=== PATIENT | female | born 1935 | race Caucasian/White ===

== ENCOUNTER 2017-11-17 13:04 | Outpatient (CLI) | payer MEDICARE, BC | END 2017-11-17 13:05 | disposition home or self-care (01) | LOC: BICULT 13:04 | PROVIDERS: ATTEND Family Medicine | DX: R60.0 Localized edema (principal); R06.09 Other forms of dyspnea; Z86.718 Personal history of other venous thrombosis and embolism ==

== ENCOUNTER 2019-09-26 14:45 | Outpatient (CLI) | payer MEDICARE, BC ==
--- NOTE | 2019-09-26 16:05 | CT ---
CT BRAIN WITH AND WITHOUT CONTRAST: DATE: 09/26/2019 HISTORY: 84 female with right temporal mass Dr. Sage discussed the findings by telephone with Dr. Greenwood at 3:54 PM on 09/26/2019. COMPARISON: none* TECHNIQUE: Precontrast scan of the brain. IV injection of iodinated contrast media. Postcontrast scan of brain. FINDINGS: There is a large neoplastic tumor mass measuring approximately 3 x 3.8 cm destroying bone, causing a large osseous defect involving the posterior aspect of the squamosal portion of the right temporal bone and adjacent anterior portion of the right mastoid bone. There is a right mastoid effusion. The tumor has heterogeneous enhancement. There is an extracranial component of the tumor. There is an intracranial right middle cranial fossa component of the tumor that has processes that deeply indent and possibly invade the lateral aspect of the anterior portion of the right temporal lobe. There is a disproportionately large area of vasogenic edema involving much of the right temporal lobe, not onl y anteriorly, but extending superiorly and posteriorly from this region of invasion. There is minimal compression of the right lateral ventricle. No obstructive hydrocephalus. Slight shift of the septum pellucidum approximately 0.4 cm to the left of midline. No acute intracranial hemorrhage. No other enhancing intra-axial lesions. IMPRESSION: 1. Large, bone destroying, right temporal, malignant neoplastic tumor mass, with both extracranial co mponent, and intracranial component invading the right middle cranial fossa and involving the right temporal lobe. Large region of vasogenic edema throughout the right temporal lobe. 2. This could either represent a metastatic lesion or primary tumor arising from the temporal bone. M etastatic lesion is favored.
== END 2019-09-26 14:46 | disposition home or self-care (01) ==
LOC: BICCT 14:45
PROVIDERS: ATTEND Specialist
DX: R22.0 Localized swelling, mass and lump, head (principal); G93.6 Cerebral edema
CPT/HCPCS: 70470; 82565

== ENCOUNTER 2019-10-23 10:12 | Outpatient (CLI) | payer MEDICARE, BC ==
--- NOTE | 2019-10-23 12:10 | MRI ---
MRI BRAIN WITH AND WITHOUT CONTRAST: Date: 10/23/2019 INDICATION: Right temporal tumor with skull invasion. Comparison made to recent CT head dated 09/26/2019. That exam confirmed a mass involving the right mi ddle cranial fossa with intra and extracranial involvement and bone destruction. FINDINGS: MRI shows diffuse heterogeneous enhancement involving this right temporal bone mass. It has a nodular configuration along its intracranial side. On axial images, it measures approximately 4.0 cm AP dime nsion, and approximately 3.1 cm width in the axial plane. There is nodular involvement of the right t emporal lobe along the borders of this mass. There is surrounding vasogenic edema within the right te mporal lobe, confirmed with FLAIR sequence/ There is associated dural enhancement involving the right cerebral hemisphere, most prominent along the right temporal and frontal lobes. No other enhancing mass identified. T2 images show diffuse mucosal edema involving the right mastoid air cells. IMPRESSION: 1. Enhancing mass involving the right temporal bone with intra and extracranial extension. Nodular i nvolvement of the right temporal lobe along the medial borders of this mass with associated dural enh ancement. Measurements given above. 2. Diffuse mucosal edema involving the right mastoid air cells. POS: [facility]
[2019-10-23] MEDS ORDERED: Magnevist 469MG/ML 20 ML VIAL ONE (15:58)
== END 2019-10-23 10:13 | disposition home or self-care (01) ==
LOC: MRI 10:12
PROVIDERS: ATTEND Surgery
DX: D49.2 Neoplasm of unspecified behavior of bone, soft tissue, and skin (principal); Q75.9 Congenital malformation of skull and face bones, unspecified
CPT/HCPCS: 70553; 82565; A9579

== ENCOUNTER 2019-10-25 05:40 | Inpatient (IN) | payer MEDICARE, BC ==
[2019-10-25] MEDS ORDERED: Sodium Chloride 0.9% 10 ML ONE (06:32)
[2019-10-25] MEDS ORDERED: Bacitracin Zinc Ointment 30 gm TUBE ONE (06:32)
[2019-10-25] MEDS ORDERED: Lidocaine 1% w/Epinephrine 1:100K 20 ML VIAL ONE (06:32)
[2019-10-25] MEDS ORDERED: Thrombin 5000 UNITS/5 ML VIAL ONE (06:32)
[2019-10-25 06:34] LABS: Hemoglobin 14.9 g/dL (12.0-16.0); Mean Corpuscular HGB CONC 33.2 g/dL (32.0-36.0); Mean Corpuscular Hemoglobin 31.7 pg (27.0-31.0); Mean Corpuscular Volume 95.5 fL (78.0-98.0); Mean Platelet Volume 8.3 fL (7.4-10.4); Platelet Count 234 thou/uL (130-400); Red Blood Cell (RBC) Count 4.71 mill/uL (4.20-5.40); White Blood Cell (WBC) Count 6.5 thou/uL (4.8-10.8)
[2019-10-25] MEDS ORDERED: Albumin 5% 500 ML ONE (06:35)
[2019-10-25] MEDS ORDERED: levETIRAcetam 1000 MG/100 ML PREMIX BAG ONE ×2 (06:35→08:23)
[2019-10-25] MEDS ORDERED: levETIRAcetam 500 MG/100 ML PREMIX BAG ONE (06:35)
[2019-10-25 06:41] LABS: Prothrombin Time 13.4 SEC (12.0-14.7)
[2019-10-25 06:42] LABS: PTT 28.7 SEC (22.9-36.1)
[2019-10-25 06:52] LABS: Anion Gap 14 mmol/L (10-20); BUN (Urea Nitrogen) 11 mg/dL (9.8-20.1); Calc. Creatinine Clearance 52 mL/min (70-130); Calcium 9.4 mg/dL (7.8-10.44); Carbon Dioxide 27 mmol/L (23-31); Chloride 106 mmol/L (98-107); Estimated GFR-MDRD 55; Glucose 90 mg/dL (83-110); Potassium 4.2 mmol/L (3.5-5.1); Sodium 143 mmol/L (136-145)
[2019-10-25] MEDS ORDERED: Fentanyl 100 MCG/2 ML VIAL ONE ×2 (07:03→07:58)
[2019-10-25] MEDS ORDERED: Phenylephrine HCL 10 MG/ML VIAL ONE (08:30)
[2019-10-25] MEDS ORDERED: Rocuronium Bromide 10 MG/ML (10ML VIAL) ONE (10:05)
[2019-10-25] MEDS ORDERED: PHENYLEPHRINE-NS 100 MCG/ML 10 ML SYRINGE ONE (10:05)
[2019-10-25] MEDS ORDERED: PROPOFOL 200 MG/20 ML VIAL ONE (10:05)
[2019-10-25] MEDS ORDERED: Lidocaine 1% PF 5 ML VIAL ONE ×2 (10:05)
[2019-10-25] MEDS ORDERED: Esmolol 100 MG/10 ML VIAL ONE (10:05)
[2019-10-25] MEDS ORDERED: Dexamethasone 20 MG/5 ML VIAL ONE (10:05)
[2019-10-25] MEDS ORDERED: Ondansetron PF 4 MG/2 ML Vial ONE (10:05)
[2019-10-25] MEDS ORDERED: SUGAMMADEX SODIUM 200 MG/2 ML VIAL ONE (10:10)
[2019-10-25] MEDS ORDERED: Acetaminophen 325 MG TAB PO PRN (10:57)
[2019-10-25] MEDS ORDERED: Mag-Al 1200 mg/1200 mg/30 ML UDCUP PO PRN (10:57)
[2019-10-25] MEDS ORDERED: Ondansetron PF 4 MG/2 ML Vial IVP PRN (10:57)
[2019-10-25] MEDS ORDERED: hydrALAZINE 20 MG/ML VIAL SLOW IVP PRN (10:57)
[2019-10-25] MEDS ORDERED: Morphine 2 MG/ML SYRINGE SLOW IVP PRN (10:57)
[2019-10-25] MEDS ORDERED: Promethazine HCl 25 MG/ML VIAL SLOW IVP PRN (11:10)
[2019-10-25] MEDS ORDERED: Ondansetron HCl/PF 4 MG/2 ML Vial IVP PRN (11:10)
[2019-10-25] MEDS ORDERED: Communication Order-Pharmacy FS PRN (11:10)
[2019-10-25] MEDS ORDERED: Promethazine HCl 25 MG/ML VIAL IM PRN (11:10)
[2019-10-25] MEDS ORDERED: traMADol HCl 50 MG TAB PO PRN (11:10)
[2019-10-25] MEDS ORDERED: Pantoprazole 40 MG VIAL IVP SCH (11:15)
[2019-10-25 13:41] VITALS: BMI 29.6
[2019-10-25] MEDS: CEFAZOLIN 2 GM in Premix Bag 1 BAG IVPB SCH ×2 (13:53→21:28)
[2019-10-25] MEDS: HYDROcodone/Acetaminophen 7.5/325 mg Tablet PO PRN ×2 (14:10→21:33)
[2019-10-25] MEDS: Sodium Chloride 0.9% 1,000 ML IV SCH ×2 (14:12→21:48)
[2019-10-25] MEDS: Dexamethasone 4 MG in Sodium Chloride 0.9% 50 ML IVPB SCH ×2 (17:43→23:31)
[2019-10-25] MEDS: Docusate 100 MG CAP PO PRN (21:28)
[2019-10-25] MEDS: Rosuvastatin 20 MG TAB PO SCH (21:28)
[2019-10-25] MEDS: Latanoprost 0.005% Ophth Soln 2.5 ml Bottle EA EYE SCH (21:31)
[2019-10-26 03:57] LABS: #Lymphocytes 0.9 thou/uL (1.20-3.40); #Monocytes 0.3 thou/uL (0.11-0.59); #Neutrophils 10.3 thou/uL (1.40-6.50); %Eosinophils 0.1 % (0.0-10.0); %Lymphocytes 8.1 % (21.0-51.0); %Monocytes 2.7 % (0.0-10.0); %Neutrophils 89.1 % (42.0-75.0); Hemoglobin 12.8 g/dL (12.0-16.0); Mean Corpuscular HGB CONC 33.3 g/dL (32.0-36.0); Mean Corpuscular Hemoglobin 32.2 pg (27.0-31.0); Mean Corpuscular Volume 96.7 fL (78.0-98.0); Mean Platelet Volume 8.7 fL (7.4-10.4); Platelet Count 200 thou/uL (130-400); Red Blood Cell (RBC) Count 3.98 mill/uL (4.20-5.40); White Blood Cell (WBC) Count 11.6 thou/uL (4.8-10.8)
[2019-10-26 04:13] LABS: Anion Gap 10 mmol/L (10-20); BUN (Urea Nitrogen) 10 mg/dL (9.8-20.1); Calc. Creatinine Clearance 63 mL/min (70-130); Calcium 8.2 mg/dL (7.8-10.44); Carbon Dioxide 25 mmol/L (23-31); Chloride 111 mmol/L (98-107); Estimated GFR-MDRD 66; Glucose 142 mg/dL (83-110); Potassium 4.5 mmol/L (3.5-5.1); Sodium 141 mmol/L (136-145)
[2019-10-26] MEDS: HYDROcodone/Acetaminophen 7.5/325 mg Tablet PO PRN ×2 (05:33→16:19)
[2019-10-26] MEDS: CEFAZOLIN 2 GM in Premix Bag 1 BAG IVPB SCH ×3 (05:34→20:13)
[2019-10-26] MEDS: Dexamethasone 4 MG in Sodium Chloride 0.9% 50 ML IVPB SCH ×4 (05:34→23:02)
[2019-10-26] MEDS: Levothyroxine Sodium 112 MCG TAB PO SCH (05:35)
--- NOTE | 2019-10-26 07:47 | CT ---
CT BRAIN WITHOUT CONTRAST: COMPARISON: None. HISTORY: Right-sided temporal mass resection. COMPARISON: MRI brain 10/23/2019. TECHNIQUE: Multiple contiguous axial images were obtained in a CT of the brain without contrast. FINDINGS: Postsurgical changes are seen in the right middle cranial fossa and temporal bone. Air is seen in th is location. There is encephalomalacia in the right temporal lobe from prior surgery. Calcification s are seen in the basal ganglia. A small amount of pneumocephalus is also seen anteriorly. There is a small amount of hyperdensity within the surgical bed which could represent a small amount of hemor rhage. No intraventricular hemorrhage is seen. No midline shift or downward herniation is seen. The paranasal sinuses and left masseter cells are well aerated. IMPRESSION: Expected postsurgical changes in the right temporal lobe without evidence of midline shift of downwar d herniation. POS: [facility]
[2019-10-26] MEDS: Pantoprazole 40 MG VIAL IVP SCH (08:56)
[2019-10-26] MEDS ORDERED: Enoxaparin Sodium 40 MG/0.4 ML SYRINGE SC SCH (10:45)
[2019-10-26] MEDS ORDERED: Iopamidol-370 76% 500 ML 1 ML ONE (11:05)
--- NOTE | 2019-10-26 11:25 | ULT ---
EXAM: Bilateral lower extremity venous duplex: Deep veins evaluated with color Doppler, spectral analysis, and compression. INDICATIONS: Bilateral lower extremity pain and edema. Prior left lower extremity DVT. FINDINGS: Deep veins interrogated include common femoral vein, femoral vein, popliteal vein, and post erior tibial vein. These veins show normal compression and blood flow. No evidence of DVT. IMPRESSION: Negative Bilateral venous duplex exam.
--- NOTE | 2019-10-26 12:02 | PRG ---
DATE OF SERVICE: Ms. Malhotra's CT is acceptable. We will start her on Lovenox prophylactically given her history of DVT postoperatively. Transfer to the floor. We will get a CT scan of chest, abdomen, pelvis. She is neurologically intact. Job ID: [id number]
[2019-10-26] MEDS: Sodium Chloride 0.9% 1,000 ML IV SCH ×2 (12:58→23:11)
--- NOTE | 2019-10-26 16:14 | CON ---
DATE OF CONSULTATION: REASON FOR CONSULTATION: Perioperative medical management. HISTORY OF PRESENT ILLNESS: This patient is an 84-year-old female, who is status post elective surgery for removal of a mass in the right temporal area involving cranium in the temporal lobe. The patient reported she initially started having some hearing issues with the right ear. She developed some soreness above the ear and then had a mass developed. She saw Dr. Mancuso, who then referred her to Dr. Ledesma and she has undergone that surgical procedure today. There was a piece of tissue taken from her thigh to reconstruct the surgical defect. The patient currently is doing remarkably well. She has some discomfort in that area. She has been tolerating clears and would like some more substantial food, but unsure she would be able to chew it at this time. Did speak with Dr. Ledesma regarding the patient, the differential in this tumor is still open, could potentially be sarcoma versus a metastatic lesion versus a meningeal source. Path is still pending. REVIEW OF SYSTEMS: The patient reports that she has had some lower extremity edema for a while, but that seems to have resolved of late, otherwise all systems reviewed. All pertinent positives and negatives noted in the history of present illness. PAST MEDICAL HISTORY: Notable for hypothyroidism, hyperlipidemia, history of reflux. 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 and reports that is not very often. 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 Lopez several years ago. She also has a history of hypertension, however, she developed angioedema related to ELINOR inhibitor. This was discontinued and she was never started on any additional blood pressure medications and her blood pressure has been stable. The patient had a DVT in her left leg, apparently following her initial hip replacements that was treated and resolved prior to her second hip replacement. PAST SURGICAL HISTORY: Hysterectomy in the , hip replacement x2, cataractectomy and lumbar stenosis decompression. FAMILY HISTORY: Multiple members of her mother's family have had cancer including her mother. Her father of an accident young and all of his family members lived well into their 80s. SOCIAL HISTORY: Nonsmoker, nondrinker, nondrug user. She is since 1989. She is fully independent and functional. She has two sons that still live relatively in this region and two daughters who live out of state. She appears to be a full code. ALLERGIES: ELINOR INHIBITOR SECONDARY TO ANGIOEDEMA. CURRENT MEDICATIONS: 1. Benadryl 25 mg t.i.d. p.r.n. 2. Vitamin B complex one daily. 3. Aloe Vera 25 mg daily. 4. Magnesium 250 mg daily. 5. Sertraline 50 mg daily. 6. Vitamin D3, 5000 units daily. 7. Levothyroxine 112 mcg daily. 8. Aspirin 325 at bedtime. 9. Tramadol 1 p.o. b.i.d. 10. Xalatan eyedrops 0.005% one drop each eye at bedtime. 11. Crestor 20 mg at bedtime. PHYSICAL EXAMINATION: VITAL SIGNS: Temperature is 98.9, pulse 70, respirations 15-19, BP 113/60, O2 saturations 98% on room air. GENERAL APPEARANCE: Age-appropriate female, who actually may appear slightly younger than her stated age. She is awake and alert, very pleasant, cooperative. She has a postsurgical bandaging over her head. HEENT: PERRL. No OP lesions. NECK: Supple and symmetric. HEART: Regular rate and rhythm without murmurs, gallops, or rubs. LUNGS: Clear to auscultation bilaterally with good chest wall expansion and air exchange. ABDOMEN: Soft, nontender, and nondistended. Positive bowel sounds. No masses. No organomegaly. EXTREMITIES: No cyanosis, clubbing, or edema. NEURO: She appears to be cognitively intact, moving all extremities spontaneously with no focal deficits. PSYCH: Normal affect and behavior. LABORATORY DATA: White count 11.6, hemoglobin 12.8, platelets 200. Sodium 141, potassium 4.5, chloride 111, CO2 is 25, BUN 10, creatinine 0.82, glucose 142. CT brain shows expected postsurgical changes in the right temporal lobe without evidence of midline shift or downward herniation. IMPRESSION AND PLAN: 1. Postop right temporal lobe mass lesion status post excision. Etiology of that is still unknown. She is doing remarkably well postoperatively. Discussed with the neurosurgical team. The patient will be transferred to the surgical floor with concerns for the possibility of metastatic disease. We will obtain CT chest, abdomen, and pelvis today. 2. History of hypertension although not been an issue of late. Blood pressure is actually quite good here. She is on no medicines at home and do not anticipate needing any at this time. 3. History of reflux. We will continue with PPI, although the patient has not been on one at home and not had much in the way of symptoms. She certainly needs it for postop stress ulcer prophylaxis. 4. History of postoperative deep vein thrombosis. The patient has contraindication to anticoagulation presently. Continue SCDs and we will try to get back on anticoagulation once it is reasonable from a postop standpoint. 5. Hyperlipidemia. Continue with rosuvastatin. 6. Postoperative seizure prophylaxis with Keppra. 7. Hypothyroidism. Continue with her levothyroxine supplementation. Job ID: [id number]
--- NOTE | 2019-10-26 16:29 | CT ---
CT CHEST, ABDOMEN AND PELVIS WITH IV CONTRAST: 10/26/19 HISTORY: Right temporal brain mass. Evaluate for metastatic disease. COMPARISON: CT abdomen and pelvis 05/06/12. CT THORAX: Vascular calcifications are seen in the thoracic aorta. The heart is mildly enlarged. There is no ev idence of lymphadenopathy. A moderate sized hiatal hernia is present with the fundus and proximal body of the stomach above the level of the hemidiaphragms. There is likely some degree of rotation of the stomach due to the hiatal hernia. There are small bilateral pleural effusions and associated bibasilar areas of parenchymal density lik sudhakar attributable to passive atelectasis. A calcified granuloma is seen in the right upper lobe. A noncalcified pulmonary nodule is not identi fied. OSSEOUS STRUCTURES: Degenerative changes are seen in the spine, but no suspicious lytic or sclerotic osseous lesion is id entified. CT ABDOMEN AND PELVIS: There is a 1.8 cm fluid attenuation hypodense lesion in the lateral segment left hepatic lobe measuri ng 19 mm with previous measurement of 18 mm on the study in 2011 and this is likely compatible with a cyst. However, there is a small 1.2 cm hypodense lesion within the dome of the liver which cannot be characterized as a cyst. There are much more subtle hypodense lesions seen scattered within the righ t hepatic lobe with at least three additional subtle hypodense lesions identified, largest in the pos terior segment right hepatic lobe measuring 22 mm and a smaller hypodense lesion seen near the more m edial aspect right hepatic lobe measuring 1.7 cm with an additional smaller lesion also present in th e posterior segment right hepatic lobe, and these lesions are suspicious for metastatic lesions. A small gallbladder calculus is seen. The spleen, pancreas, bilateral adrenal glands, and kidneys demonstrate a normal CT appearance. French catheter is present in the urinary bladder. There is gas in the urinary bladder which may be re lated to the recent catheterization. There are bilateral total hip prostheses which obscure the pelvi c structures. There is colonic diverticulosis. Loops of small bowel are normal in caliber. No enlarged lymph nodes are seen by CT size criteria. 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 No free fluid, fluid collection, or lymphadenopathy is seen in the abdomen or pelvis. Multilevel degenerative changes are seen in the spine. There is grade I anterolisthesis of L3 on L4 l ikely related to prominent facet degenerative changes at this level. IMPRESSION: 1. Hypodense lesions scattered in the right and left hepatic lobes worrisome for metastatic dise ase. 2. Left hepatic lobe cyst. 3. Small bilateral pleural effusions and associated atelectasis. 4. Moderate sized hiatal hernia with at least a degree of rotation of the stomach. The fundus an d proximal body of the stomach above the hemidiaphragm is difficult to assess secondary to the mild r otation and incomplete distention. 5. Colonic diverticulosis. 6. Duplicated IVC. POS: [facility]
[2019-10-26] MEDS ORDERED: Milk Of Magnesia 30 ML UDCUP PO PRN (18:38)
[2019-10-26] MEDS: Rosuvastatin 20 MG TAB PO SCH (20:13)
[2019-10-26] MEDS: Latanoprost 0.005% Ophth Soln 2.5 ml Bottle EA EYE SCH (20:13)
[2019-10-27] MEDS: HYDROcodone/Acetaminophen 7.5/325 mg Tablet PO PRN ×3 (02:58→22:18)
[2019-10-27] MEDS: Docusate 100 MG CAP PO PRN (04:07)
[2019-10-27] MEDS: Levothyroxine Sodium 112 MCG TAB PO SCH (05:03)
[2019-10-27] MEDS: Dexamethasone 4 MG in Sodium Chloride 0.9% 50 ML IVPB SCH ×3 (05:03→19:05)
[2019-10-27] MEDS: CEFAZOLIN 2 GM in Premix Bag 1 BAG IVPB SCH ×3 (05:03→21:17)
[2019-10-27] MEDS: Enoxaparin Sodium 40 MG/0.4 ML SYRINGE SC SCH (08:22)
[2019-10-27] MEDS: Pantoprazole 40 MG VIAL IVP SCH (08:22)
--- NOTE | 2019-10-27 12:23 | PRG ---
DATE OF SERVICE: 10/27/2019 This is Jose Francisco Casillas PA-C dictating a report for Devon Ledesma MD. Postoperative recheck. Ms. Malhotra is postoperative day number two having undergone right craniotomy and cranioplasty for tumor resection. Her pathology is still pending. The patient states she had a rough night. She had some pretty significant right-sided headache. She has had no drainage from her ear, though feels that it is extremely full and she has noticed some itching. Again, there has been no drainage. She has no postural headache. She states that she has significant back pain and arthritis and this is most bothersome to her. She was sitting up in a chair yesterday and states this helps to improve her back pain. She has had no nausea or vomiting, is tolerating a solid diet. She is concerned about bowel movements. She has a history of small-bowel obstruction and she is on appropriate bowel regimen and I have discussed with the nurses. I also noticed that she did have some issue with her IV and we will allow her to transition to oral medications as tolerated. Finally, we did obtain a CT scan of the chest, abdomen, and pelvis that showed some concern for metastatic disease in her liver. We will ask that Oncology see the patient and she likely will need an outpatient PET scan, but we will defer to them in this regard. PHYSICAL EXAMINATION: The patient is awake, alert, appropriate, and she really does look as though she is recovering well. She does not appear to have significant swelling into the right side of her face. She follows commands in all 4 extremities and has very clear and coherent speech. Please call with any changes in patient's neurologic status or she may work with therapies and we will continue with inpatient rehab screen as ordered. The patient is doing very well postoperatively and we are pleased with her outcome. We will continue to monitor her for possible CSF leak, especially coming from the ear. Job ID: [id number]
[2019-10-27] MEDS: Sodium Chloride 0.9% 1,000 ML IV SCH (13:17)
--- NOTE | 2019-10-27 14:52 | PDOC.HOSPP ---
- Subjective Subjective: pt ambulating inside the room, family members visiting her, rough night, did not sleep much but she is quite cheerful and pleasant. Ct finding d/w her. denies any headache or earpain - Objective Vital Signs & Weight: Vital Signs (12 hours) Temp Pulse Resp BP Pulse Ox 10/27/19 11:18 98.0 F 74 16 135/70 100 10/27/19 08:20 98 10/27/19 07:17 97.9 F 63 16 119/70 98 10/27/19 03:52 98.7 F 63 16 124/68 94 L Weight Weight 172 lb 9.951 oz Most Recent Monitor Data Heart Rate from ECG 68 NIBP 98/83 NIBP BP-Mean 88 Respiration from ECG 20 SpO2 98 I&O: 10/26/19 10/27/19 10/28/19 06:59 06:59 06:59 Intake Total 2252 525 450 Output Total 1815 2445 Balance 437 -1920 450 Result Diagrams: 10/26/19 03:41 10/26/19 03:41 Hospitalist ROS - Medication Medications: Active Medications Generic Name Dose Route Start Last Admin Trade Name Freq PRN Reason Stop Dose Admin Hydrocodone Bitart/Acetaminophen 1 tab 10/25/19 10:57 10/27/19 12:10 Edison 7.5/325 PO 1 tab Q4H PRN Administration Moderate Pain (4-6) Cholecalciferol 5,000 units 10/26/19 09:00 10/27/19 08:23 Vitamin D3 PO 5,000 units DAILY SARAH Administration Docusate Sodium 100 mg 10/25/19 10:57 10/27/19 04:07 Colace PO 100 mg BIDPRN PRN Administration Constipation Enoxaparin Sodium 40 mg 10/27/19 09:00 10/27/19 08:22 Lovenox SC 40 mg 0900 SARAH Administration Cefazolin Sodium/Dextrose 2 gm 50 mls @ 100 mls/hr 10/25/19 14:00 10/27/19 13 :32 / Device IVPB 50 mls Q8HR SARAH Administration Dexamethasone 4 mg/ Sodium 50.4 mls @ 100 mls/hr 10/25/19 18:00 10/27/19 12: 10 Chloride IVPB 10/27/19 18:01 50.4 mls Q6HR SARAH Administration Levetiracetam 500 mg/ Device 100 mls @ 200 mls/hr 10/25/19 21:00 10/27/19 08: 22 IVPB 100 mls BID SARAH Administration Sodium Chloride 1,000 mls @ 75 mls/hr 10/25/19 11:00 10/27/19 13:17 Normal Saline 0.9% IV Not Given .[id number] SARAH Latanoprost 1 drop 10/25/19 21:00 10/26/19 20:13 Xalatan 0.005% Ophth Soln EA EYE 1 drop HS SARAH Administration Levothyroxine Sodium 112 mcg 10/26/19 06:00 10/27/19 05:03 Synthroid PO 112 mcg 0600 SARAH Administration Magnesium Hydroxide 30 ml 10/26/19 18:38 10/27/19 12:10 Milk Of Magnesium PO 11/02/19 18:39 30 ml ONE PRN Administration Constipation Morphine Sulfate 2 mg 10/25/19 10:57 10/25/19 23:30 Morphine SLOW IVP 2 mg Q1H PRN Administration Severe Pain (7-10) Pantoprazole Sodium 40 mg 10/26/19 09:00 10/27/19 08:22 Protonix IVP 40 mg DAILY SARAH Administration Rosuvastatin Calcium 20 mg 10/25/19 21:00 10/26/19 20:13 Crestor PO 20 mg HS SARAH Administration Sertraline HCl 50 mg 10/26/19 09:00 10/27/19 08:23 Zoloft PO 50 mg DAILY SARAH Administration Sodium Chloride 10 ml 10/25/19 10:57 10/26/19 08:57 Flush - Normal Saline IVF 10 ml PRN PRN Administration Saline Flush - Exam General Appearance: NAD, awake alert, ill appearing Eye: PERRL ENT - other findings: no ear discharge Neck: supple Heart: RRR Respiratory: CTAB, no wheezes Gastrointestinal: soft, normal bowel sounds Extremities: no clubbing, no edema Neurological: cranial nerve grossly intact, no focal deficits, no new deficit Hosp A/P - Plan old records reviewed/req Right temporal lobe mass s/p R.craniotomy and cranioplasty poss.metastatic ca with mets to liver -primary unknown yet -NS making contact w.. oncologist and plan for OP PET -pt had cscope closer to 10 yrs ago, neg.. for ca at that time. -avoid tramadol as risk for seizure or it would reduce the threshold for seizure. -tylenol PRN. HTN -controlled Hypothyroidism -on supplement -fw on TSH
[2019-10-27] MEDS: Dexamethasone 3 MG in Sodium Chloride 0.9% 50 ML IVPB SCH ×2 (19:04→23:03)
[2019-10-27] MEDS: Rosuvastatin 20 MG TAB PO SCH (20:21)
[2019-10-27] MEDS: Latanoprost 0.005% Ophth Soln 2.5 ml Bottle EA EYE SCH (20:21)
[2019-10-27] MEDS: levETIRAcetam 500 MG TAB PO SCH (20:21)
[2019-10-27] MEDS: diphenhydrAMINE 25 MG CAP PO PRN (22:20)
[2019-10-28] MEDS: Dexamethasone 3 MG in Sodium Chloride 0.9% 50 ML IVPB SCH ×4 (05:03→23:56)
[2019-10-28 05:26] LABS: #Lymphocytes 0.8 thou/uL (1.20-3.40); #Monocytes 0.4 thou/uL (0.11-0.59); #Neutrophils 7.1 thou/uL (1.40-6.50); %Eosinophils 0.2 % (0.0-10.0); %Lymphocytes 9.7 % (21.0-51.0); %Monocytes 5.2 % (0.0-10.0); Mean Corpuscular HGB CONC 31.9 g/dL (32.0-36.0); Mean Corpuscular Volume 97.2 fL (78.0-98.0); Mean Platelet Volume 9.6 fL (7.4-10.4); Platelet Count 189 thou/uL (130-400); Red Blood Cell (RBC) Count 3.85 mill/uL (4.20-5.40); White Blood Cell (WBC) Count 8.3 thou/uL (4.8-10.8)
[2019-10-28 05:47] LABS: Anion Gap 10 mmol/L (10-20); BUN (Urea Nitrogen) 16 mg/dL (9.8-20.1); Calc. Creatinine Clearance 66 mL/min (70-130); Calcium 8.3 mg/dL (7.8-10.44); Carbon Dioxide 24 mmol/L (23-31); Chloride 109 mmol/L (98-107); Estimated GFR-MDRD 70; Glucose 131 mg/dL (83-110); Potassium 4.2 mmol/L (3.5-5.1); Sodium 139 mmol/L (136-145)
[2019-10-28] MEDS: Levothyroxine Sodium 112 MCG TAB PO SCH (05:50)
[2019-10-28] MEDS: CEFAZOLIN 2 GM in Premix Bag 1 BAG IVPB SCH ×3 (05:50→22:03)
[2019-10-28] MEDS: Sodium Chloride 0.9% 1,000 ML IV SCH ×2 (05:50→20:28)
[2019-10-28] MEDS: levETIRAcetam 500 MG TAB PO SCH ×2 (08:18→20:27)
[2019-10-28] MEDS: Pantoprazole 40 MG VIAL IVP SCH (08:18)
[2019-10-28] MEDS: Enoxaparin Sodium 40 MG/0.4 ML SYRINGE SC SCH (08:18)
--- NOTE | 2019-10-28 10:32 | OP ---
DATE OF PROCEDURE: 10/25/2019 IMPROVEMENT DIRECTOR: Britney Vela PA-C PREPROCEDURE DIAGNOSIS: Extra-axial mass of the right temporal region with skull base invasion and extracranial and intracranial involvement with breach of dura resulting in cerebral edema, mass effect, and midline shift. POSTPROCEDURE DIAGNOSIS: Extra-axial mass of the right temporal region with skull base invasion and extracranial and intracranial involvement with breach of dura resulting in cerebral edema, mass effect, and midline shift. PROCEDURES PERFORMED: 1. Right temporal craniotomy for removal of osteolytic lesion with skeletonization of the temporalis muscle, resection of dura, and removal of tumor out of petrous air cells. 2. Right tensor fascia lucero harvest with fascia lucero and fat for dural and skull base repair to reduce CSF leak risk and encephalocele/mucocele. 3. Use of stereotaxy to augment resection. DESCRIPTION OF PROCEDURE: After informed consent was obtained from the patient, the patient was brought to the OR. Proper patient, pause, and identification were carried out. She was placed under excellent general endotracheal anesthesia and her head turned to the left to expose the right zygoma and temporal fossa. This region was sterilely cleansed, prepared, and draped. A small incision was also drawn out in right tensor fascia lucero region to allow for harvest of fascia lucero and fat for dural and skull base repair. The patient was placed in the Felix [employer] evp head of [employer] strategy and the stereotactic registration occurred with excellent accuracy. We then sterilely cleansed, prepared, and draped the right leg over the right fascia lucero wound along with the right temporal region. The temporal wound was sterilely cleansed, prepared, and draped, and local anesthetic was used with epinephrine. Proper patient, pause, and identification were carried out, and the wound was then opened and temporalis scalp and temporalis muscle exposed. Underneath temporalis muscle revealed a fleshy firm and fibrous mass, that equated to the tumor. We followed this around the bone edges and partially into the infratemporal fossa and this was resected both by gross and stereotactic visualization. I was careful to stay out of the ear canal and any air cells that were violated were waxed following tumor removal, and we then entered through the breach in the dura, sent the tumor for specimen, which was consistent with aggressive neoplasm of unknown cytology as of yet. We then continued to proceed along the temporal lobe and remove the tumor off the temporal lobe, where it had parasitized. The temporal lobe vasculature, and the temporal lobe was protected and the tumor I felt resected in its entirety. Any portions of the dura that remained were cauterized. I then removed portions of tumor out of the petrous air cells that were evident both in gross and fluoroscopic visualization. The fascia lucero fat harvest was then performed and folded and laid over the bone waxed air cells to prevent CSF leak, mucocele, and encephalocele. Copious irrigation occurred. Both wounds were then again hemostased throughout, copiously irrigated and closed in anatomic layers. The patient emerged from anesthesia. Job ID: [id number]
--- NOTE | 2019-10-28 14:24 | PDOC.HOSPP ---
- Subjective Subjective: pt is doing well; she is a good conversationalist. cheerful this am. - Objective Vital Signs & Weight: Vital Signs (12 hours) Temp Pulse Resp BP Pulse Ox 10/28/19 11:25 97.5 F L 64 16 111/68 99 10/28/19 08:00 97.5 F L 59 L 16 135/75 98 10/28/19 03:06 97.9 F 55 L 16 135/75 99 Weight Weight 172 lb 9.951 oz Most Recent Monitor Data Heart Rate from ECG 68 NIBP 98/83 NIBP BP-Mean 88 Respiration from ECG 20 SpO2 98 I&O: 10/27/19 10/28/19 10/29/19 06:59 06:59 06:59 Intake Total 525 1200 Output Total 1726 5445 Balance -[id number] Result Diagrams: 10/28/19 04:49 10/28/19 04:49 Hospitalist ROS - Medication Medications: Active Medications Generic Name Dose Route Start Last Admin Trade Name Freq PRN Reason Stop Dose Admin Hydrocodone Bitart/Acetaminophen 1 tab 10/25/19 10:57 10/27/19 22:18 [place] 7.5/325 PO 1 tab Q4H PRN Administration Moderate Pain (4-6) Cholecalciferol 5,000 units 10/26/19 09:00 10/28/19 08:17 Vitamin D3 PO 5,000 units DAILY SARAH Administration Diphenhydramine HCl 25 mg 10/25/19 11:10 10/27/19 22:20 Benadryl PO 25 mg TIDPRN PRN Administration Allergies Docusate Sodium 100 mg 10/25/19 10:57 10/27/19 04:07 Colace PO 100 mg BIDPRN PRN Administration Constipation Enoxaparin Sodium 40 mg 10/27/19 09:00 10/28/19 08:18 Lovenox SC 40 mg 0900 SARAH Administration Cefazolin Sodium/Dextrose 2 gm 50 mls @ 100 mls/hr 10/25/19 14:00 10/28/19 14 :16 / Device IVPB 50 mls Q8HR SARAH Administration Dexamethasone 3 mg/ Sodium 50.75 mls @ 100 mls/hr 10/27/19 18:00 10/28/19 11: 49 Chloride IVPB 10/29/19 18:01 50.75 mls Q6HR SARAH Administration Sodium Chloride 1,000 mls @ 75 mls/hr 10/25/19 11:00 10/28/19 05:50 Normal Saline 0.9% IV Not Given .[id number] SARAH Latanoprost 1 drop 10/25/19 21:00 10/27/19 20:21 Xalatan 0.005% Ophth Soln EA EYE 1 drop HS SARAH Administration Levetiracetam 500 mg 10/27/19 21:00 10/28/19 08:18 Keppra PO 500 mg BID SARAH Administration Levothyroxine Sodium 112 mcg 10/26/19 06:00 10/28/19 05:50 Synthroid PO 112 mcg 0600 SARAH Administration Magnesium Hydroxide 30 ml 10/26/19 18:38 10/27/19 12:10 Milk Of Magnesium PO 11/02/19 18:39 30 ml ONE PRN Administration Constipation Morphine Sulfate 2 mg 10/25/19 10:57 10/25/19 23:30 Morphine SLOW IVP 2 mg Q1H PRN Administration Severe Pain (7-10) Pantoprazole Sodium 40 mg 10/26/19 09:00 10/28/19 08:18 Protonix IVP 40 mg DAILY SARAH Administration Rosuvastatin Calcium 20 mg 10/25/19 21:00 10/27/19 20:21 Crestor PO 20 mg HS SARAH Administration Sertraline HCl 50 mg 10/26/19 09:00 10/28/19 08:18 Zoloft PO 50 mg DAILY SARAH Administration Sodium Chloride 10 ml 10/25/19 10:57 10/26/19 08:57 Flush - Normal Saline IVF 10 ml PRN PRN Administration Saline Flush - Exam General Appearance: NAD, awake alert Eye: anicteric sclera ENT: normocephalic atraumatic ENT - other findings: head cover, right temporal area with sutures. no swelling around the area Neck: supple, symmetric, no JVD Heart: RRR, no murmur Respiratory: CTAB, no wheezes Gastrointestinal: soft, non-tender, non-distended, normal bowel sounds Neurological: no focal deficits Hosp A/P - Plan old records reviewed/req Right temporal lobe mass s/p R.craniotomy and cranioplasty poss.metastatic ca with mets to liver -primary unknown yet -NS making contact w.. oncologist and plan for OP PET -pt had cscope closer to 10 yrs ago, neg.. for ca at that time. -avoid tramadol as risk for seizure or it would reduce the threshold for seizure. -tylenol PRN. HTN -controlled Hypothyroidism -on supplement -fw on TSH--->nl trying to contact NS whether we need inpt onc.. consult. pending rehab - CM consult in place for rehab.
--- NOTE | 2019-10-28 15:35 | PRG ---
DATE OF SERVICE: 10/28/2019 Postoperative recheck. Ms. Malhotra is postoperative day #3 having undergone right temporal lobe tumor resection. The patient has not had any drainage from her right ear, though reports some fullness. She states it itches significantly and she has been scratching it. I remind her not to do this as we would like to minimize the risk of CSF leak postoperatively. The patient says that she has had a slight salty taste in the back of her mouth, but she has had significant postnasal drip and coughing. This does not appear to be consistent with CSF leak at this time. The patient has some incisional pain, but otherwise no headache. She did sleep in a recliner last night and this has helped to improve her back pain. She has been passing when there was concern that she has a history of small bowel obstruction. We are working on aggressive bowel regimen and I have added MiraLAX to her regimen. We will discontinue her French and we will plan for bladder scans. We will have also consulted Oncology in regard to questionable masses in the liver that may be a metastatic cancer. We are waiting on brain pathology, this is pending. Overall, the patient is moving in wonderful direction. I am pleased with her improvement. She will likely be ready for discharge to inpatient rehab as early as tomorrow. We will continue to evaluate and monitor her neurologic status. Please call with any changes in patient's neurologic status and we will keep an eye on her wound. I should also note that her fascia lucero graft has a dressing on it with one area of tiny spot drainage, but otherwise the patient has no complaints. Job ID: [id number]
[2019-10-28] MEDS: Polyethylene Glycol 3350 17 GM Packet PO PRN (15:38)
--- NOTE | 2019-10-28 18:54 | EKG ---
Test Reason : PREOP Blood Pressure : / mmHG Vent. Rate : 070 BPM Atrial Rate : 070 BPM P-R Int : 144 ms QRS Dur : 080 ms QT Int : 408 ms P-R-T Axes : 054 -09 004 degrees QTc Int : 440 ms Normal sinus rhythm Normal ECG When compared with ECG of 14-AUG-2009 10:00, Premature ectopic complexes are no longer Present Confirmed by SCOTTIE CHAMPION, DR. Hector ([id number]) on 10/28/2019 6:54:01 PM Referred By: SHANNON Confirmed By:DR. Krunal RUBIN MD
[2019-10-28] MEDS: Rosuvastatin 20 MG TAB PO SCH (20:27)
[2019-10-28] MEDS: HYDROcodone/Acetaminophen 7.5/325 mg Tablet PO PRN (20:27)
[2019-10-28] MEDS: Latanoprost 0.005% Ophth Soln 2.5 ml Bottle EA EYE SCH (20:28)
[2019-10-28] MEDS: Docusate 100 MG CAP PO PRN (20:31)
--- NOTE | 2019-10-28 23:49 | CON ---
DATE OF CONSULTATION: REASON FOR CONSULTATION: Brain mass and liver lesions. HISTORY OF PRESENT ILLNESS: Ms. Malhotra is a pleasant 84-year-old female, who presented to her primary care physician with hearing issues in her right ear. She was then referred to Dr. Mancuso, who performed a brain CT. On September 26, the CT showed a large bone destroying right temporal tumor mass with both extracranial and intracranial component. It measured 3 x 3.8 cm. A needle biopsy was performed, which showed atypical cells, suspicious for malignancy. She was then referred to Dr. Ledesma, who admitted her and performed a right temporal craniotomy with tumor resection. The patient then underwent a CT of her chest, abdomen, and pelvis with IV contrast. There was a 1.8 cm fluid attenuation hypodense lesion in the left hepatic lobe, likely a cyst. There was a small 1.2 cm hypodense lesion, which could not be characterized as a cyst. There was also a 1.7 cm lesion in the more medial aspect of the right hepatic lobe with multiple small subtle hypodense lesions, worrisome for metastatic disease. The patient's pathology from her temporal lesion resection has not returned. A flow cytometry was performed on the lesion, which was positive for abnormal B-cell population, was suspicious for B-cell lymphoproliferative disorder. However, this specimen showed viability. The patient had hip replacement in 2018, states she has lost 50 pounds since that time frame. She denies any night sweats. She was seen at bedside. She is sitting in a chair and has no concerns at this time. PAST MEDICAL HISTORY: 1. Hypertension. 2. Hypothyroidism. 3. Hyperlipidemia. 4. Reflux. PAST SURGICAL HISTORY: Hysterectomy, hip replacement x2, cataract surgery, and lumbar stenosis decompression. ALLERGIES: TO [employer]. HOME MEDICATIONS: 1. Aspirin. 2. Levothyroxine. 3. Crestor. 4. Sertraline. 5. Tramadol. 6. Multivitamins. FAMILY HISTORY: No history of brain lesions. SOCIAL HISTORY: , independent, has 4 children. No alcohol, tobacco, or illicit drug use. REVIEW OF SYSTEMS: A 10-point review of systems is negative except for noted in HPI. PHYSICAL EXAMINATION: VITAL SIGNS: Temperature 98.2, pulse is 64, respiratory rate 20, blood pressure is 116/63. She is 98% on room air. GENERAL: Well-developed, well-nourished female. HEENT: The patient has incision above her right ear with asif. She has a turban in place. NECK: Has slight edema on the right side. CV: Regular rate and rhythm. LUNGS: Clear. ABDOMEN: Soft and nontender. Bowel sounds are positive. EXTREMITIES: No clubbing or cyanosis. SKIN: No rash. LYMPH: No palpable lymphadenopathy. NEUROLOGIC: The patient is alert, oriented, and appropriate. PERTINENT LABS AND X-RAYS: Current WBCs are 8.3, hemoglobin 12, hematocrit 37.5, platelet count is 187,000, 85% neutrophils, 9% lymphocytes. Sodium is 139, potassium 4.2, chloride 109, CO2 is 24, BUN is 16, creatinine 0.78, calcium is 8.3. TSH is normal. Radiology per HPI. ASSESSMENT: 1. Right temporal lobe mass, status post craniotomy and tumor excision. Path currently pending. 2. Hypodense liver lesions worrisome for metastatic disease. DISCUSSION: The case will be discussed with Dr. Clements. The patient will likely go to rehab in the next several days. She will need to be seen by Dr. Clements in the outpatient setting. She will likely have a PET to further characterize the liver lesions. Await final pathology on the brain mass for recommendations. Thank you for the consult. We will be pleased to take care of this nice lady. Job ID: [id number]
[2019-10-29] MEDS: Levothyroxine Sodium 112 MCG TAB PO SCH (05:21)
[2019-10-29] MEDS: CEFAZOLIN 2 GM in Premix Bag 1 BAG IVPB SCH (05:21)
[2019-10-29] MEDS: Dexamethasone 3 MG in Sodium Chloride 0.9% 50 ML IVPB SCH ×2 (05:22→11:19)
[2019-10-29] MEDS: diphenhydrAMINE 25 MG CAP PO PRN (05:24)
[2019-10-29] MEDS: HYDROcodone/Acetaminophen 7.5/325 mg Tablet PO PRN (05:36)
--- NOTE | 2019-10-29 08:54 | PRG ---
DATE OF SERVICE: 10/29/2019 This is Jose Francisco Casillas PA-C dictating a report for Devon Ledesma MD. Postoperative recheck. Ms. Malhotra is postoperative day #4 having undergone right temporal craniotomy for tumor resection. Pathology of the tumor is noted to be B-cell lymphoma. I have updated the patient in regard. She will benefit from oral agents at the direction of Oncology. She needs to follow up with them outpatient in regard to some liver lesion and they saw her yesterday, suggested outpatient PET scan. In regard to her neurosurgical issues, the patient appears to be improving well. She has intermittent headache. She has noticed continued fullness into the right ear, but no drainage. She has had no salty discharge in the back of her mouth. She has been up walking and urinating. She is ready for inpatient rehab. The patient is neurologically intact, follows commands in all 4 extremities and is appropriate and conversant. We will check on the status of inpatient rehab. Otherwise, she is stable to go from our standpoint. Job ID: [id number]
[2019-10-29] MEDS: Pantoprazole 40 MG VIAL IVP SCH (09:02)
[2019-10-29] MEDS: Enoxaparin Sodium 40 MG/0.4 ML SYRINGE SC SCH (09:02)
[2019-10-29] MEDS: Sodium Chloride 0.9% 1,000 ML IV SCH (09:02)
[2019-10-29] MEDS: Docusate 100 MG CAP PO PRN (09:03)
[2019-10-29] MEDS: Polyethylene Glycol 3350 17 GM Packet PO PRN (09:03)
[2019-10-29] MEDS: levETIRAcetam 500 MG TAB PO SCH (09:03)
[2019-10-29 12:01] VITALS: BP 128/65; TEMP 97.6
--- NOTE | 2019-10-29 13:52 | PDOC.HOSPP ---
- Subjective Subjective: no acute issues. plan for rehab transfer. talk to NS. path report - B cell lymphoma - Objective Vital Signs & Weight: Vital Signs (12 hours) Temp Pulse Resp BP BP Pulse Ox 10/29/19 11:30 97.6 F 66 16 128/65 97 10/29/19 07:20 97.3 F L 53 L 16 127/74 100 10/29/19 03:20 97.9 F 57 L 16 134/66 97 Weight Weight 172 lb 9.951 oz Most Recent Monitor Data Heart Rate from ECG 68 NIBP 98/83 NIBP BP-Mean 88 Respiration from ECG 20 SpO2 98 I&O: 10/28/19 10/29/19 10/30/19 06:59 06:59 06:59 Intake Total 1200 1800 Output Total 2175 250 Balance -975 1550 Result Diagrams: 10/28/19 04:49 10/28/19 04:49 Hospitalist ROS - Medication Medications: Active Medications Generic Name Dose Route Start Last Admin Trade Name Freq PRN Reason Stop Dose Admin Hydrocodone Bitart/Acetaminophen 1 tab 10/25/19 10:57 10/29/19 05:36 [place] 7.5/325 PO 1 tab Q4H PRN Administration Moderate Pain (4-6) Cholecalciferol 5,000 units 10/26/19 09:00 10/29/19 09:02 Vitamin D3 PO 5,000 units DAILY SARAH Administration Diphenhydramine HCl 25 mg 10/25/19 11:10 10/29/19 05:24 Benadryl PO 25 mg TIDPRN PRN Administration Allergies Docusate Sodium 100 mg 10/25/19 10:57 10/29/19 09:03 Colace PO 100 mg BIDPRN PRN Administration Constipation Enoxaparin Sodium 40 mg 10/27/19 09:00 10/29/19 09:02 Lovenox SC 40 mg 0900 SARAH Administration Dexamethasone 3 mg/ Sodium 50.75 mls @ 100 mls/hr 10/27/19 18:00 10/29/19 11: 19 Chloride IVPB 10/29/19 18:01 50.75 mls Q6HR SARAH Administration Sodium Chloride 1,000 mls @ 75 mls/hr 10/25/19 11:00 10/29/19 09:02 Normal Saline 0.9% IV Not Given .[id number] SARAH Latanoprost 1 drop 10/25/19 21:00 10/28/19 20:28 Xalatan 0.005% Ophth Soln EA EYE 1 drop HS SARAH Administration Levetiracetam 500 mg 10/27/19 21:00 10/29/19 09:03 Keppra PO 500 mg BID SARAH Administration Levothyroxine Sodium 112 mcg 10/26/19 06:00 10/29/19 05:21 Synthroid PO 112 mcg 0600 SARAH Administration Magnesium Hydroxide 30 ml 10/26/19 18:38 10/27/19 12:10 Milk Of Magnesium PO 11/02/19 18:39 30 ml ONE PRN Administration Constipation Morphine Sulfate 2 mg 10/25/19 10:57 10/25/19 23:30 Morphine SLOW IVP 2 mg Q1H PRN Administration Severe Pain (7-10) Pantoprazole Sodium 40 mg 10/26/19 09:00 10/29/19 09:02 Protonix IVP 40 mg DAILY SARAH Administration Polyethylene Glycol 17 gm 10/28/19 14:38 10/29/19 09:03 Miralax PO 17 gm DAILYPRN PRN Administration Constipation Rosuvastatin Calcium 20 mg 10/25/19 21:00 10/28/19 20:27 Crestor PO 20 mg HS SARAH Administration Sertraline HCl 50 mg 10/26/19 09:00 10/29/19 09:03 Zoloft PO 50 mg DAILY SARAH Administration Sodium Chloride 10 ml 10/25/19 10:57 10/26/19 08:57 Flush - Normal Saline IVF 10 ml PRN PRN Administration Saline Flush - Exam General Appearance: NAD, awake alert Eye: PERRL Neck: symmetric Heart: RRR Respiratory: CTAB Gastrointestinal: soft, non-distended, normal bowel sounds Neurological: no focal deficits, no new deficit Hosp A/P - Plan old records reviewed/req Right temporal lobe mass s/p R.craniotomy and cranioplasty B cell lymphoma -primary unknown yet -NS making contact w.. oncologist and plan for OP PET -pt had cscope closer to 10 yrs ago, neg.. for ca at that time. -avoid tramadol as risk for seizure or it would reduce the threshold for seizure. -tylenol PRN. HTN -controlled Hypothyroidism -on supplement -fw on TSH--->nl B cell lymphoma Dr. Clements, oncologist will be following as outpt. plan for rehab transfer today.
[2019-10-29] MEDS ORDERED: Dexamethasone 2 MG in Sodium Chloride 0.9% 50 ML IVPB SCH (18:00)
[2019-10-31] MEDS ORDERED: Dexamethasone 1 MG in Sodium Chloride 0.9% 50 ML IVPB SCH (18:00)
== END 2019-10-29 14:15 | DRG 820 ==
LOC: SURG A 05:40 → CCU 13:24 → SURG A 10-26 12:05
PROVIDERS: ADMIT Surgery; ATTEND Surgery
PROC: 00B20ZZ Excision of Dura Mater, Open Approach (ICD-10-PCS; principal; 2019-10-25)
PROC: 0NB50ZZ Excision of Right Temporal Bone, Open Approach (ICD-10-PCS; 2019-10-25)
PROC: 00B70ZZ Excision of Cerebral Hemisphere, Open Approach (ICD-10-PCS; 2019-10-25)
PROC: 0JX00ZC Transfer Scalp Subcutaneous Tissue and Fascia with Skin, Subcutaneous Tissue and Fascia, Open Approach (ICD-10-PCS; 2019-10-25)
PROC: 8E09XBZ Computer Assisted Procedure of Head and Neck Region (ICD-10-PCS; 2019-10-25)
DX: C85.19 Unspecified B-cell lymphoma, extranodal and solid organ sites (principal); G93.6 Cerebral edema; C85.11 Unspecified B-cell lymphoma, lymph nodes of head, face, and neck; E78.5 Hyperlipidemia, unspecified; K21.9 Gastro-esophageal reflux disease without esophagitis; E03.9 Hypothyroidism, unspecified; Z90.710 Acquired absence of both cervix and uterus; Z88.8 Allergy status to other drugs, medicaments and biological substances; Z86.718 Personal history of other venous thrombosis and embolism; I10 Essential (primary) hypertension
CPT/HCPCS: 36415; 70450; 70553; 71260; 74177; 80048; 82565; 84443; 85025; 85027; 85610; 85730; 86850; 86900; 86901; 88184; 88237; 88264; 88280; 88307; 88331; 88334; 88341; 88342; 88360; 88365; 93005; 93010; 93970; A9579; C9113; J0690; J1100; J1650; J1953; J2001; J2270; J2370; J2405; J2704; J3010; J3490; P9045; Q0163; Q9967

== ENCOUNTER 2019-11-22 08:26 | Outpatient (CLI) | payer MEDICARE, BC ==
--- NOTE | 2019-11-22 12:22 | PET ---
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 Exam requested for initial staging. TECHNIQUE: PET scanning with CT attenuation correction was performed from the vertex through the proximal thighs following the intravenous administration of 12.4 mCi [id number]. COMPARISON: None. CORRELATION: MRI brain of 10/23/[address] chest/abdomen/pelvis of 10/26/2019. FINDINGS: There are postop changes in the right temporal region. No papa hypermetabolism is seen in the neck, chest, axilla, abdomen, pelvis, or inguinal regions. No hypermetabolic pulmonary nodules, adrenal or skeletal lesions are seen. There is a solitary hyperm etabolic focus in the dome of the liver with a SUV of 7. There is physiologic activity in the brain, GI and tracts. The CT scan used for attenuation correction demonstrates no evidence of pleural effusions or ascites. There is a left hepatic lobe cyst, cholelithiasis, moderate sized hiatal hernia, and colonic diverti culosis. IMPRESSION: Solitary hypermetabolic lesion in the dome of the liver. Remainder of exam is otherwise unremarkable ([place] 5). POS: [facility]
== END 2019-11-22 08:27 | disposition home or self-care (01) ==
LOC: PET 08:26
PROVIDERS: ATTEND Internal Medicine Hematology & Oncology
DX: C83.31 Diffuse large B-cell lymphoma, lymph nodes of head, face, and neck (principal); K76.9 Liver disease, unspecified
CPT/HCPCS: 78815; A9552

== ENCOUNTER 2019-12-02 06:23 | Outpatient (CLI) | payer MEDICARE, BC ==
[2019-12-02 12:48] LABS: #Eosinphils 0.1 thou/uL (0.0-0.7); #Lymphocytes 1.4 thou/uL (1.20-3.40); #Monocytes 0.5 thou/uL (0.11-0.59); #Neutrophils 4.5 thou/uL (1.40-6.50); %Basophils 0.3 % (0.0-1.0); %Eosinophils 1.9 % (0.0-10.0); %Lymphocytes 20.9 % (21.0-51.0); %Monocytes 6.9 % (0.0-10.0); Hemoglobin 15.1 g/dL (12.0-16.0); Mean Corpuscular HGB CONC 33.9 g/dL (32.0-36.0); Mean Corpuscular Hemoglobin 32.3 pg (27.0-31.0); Mean Corpuscular Volume 95.3 fL (78.0-98.0); Mean Platelet Volume 8.5 fL (7.4-10.4); Platelet Count 278 thou/uL (130-400); RBC Distribution Width 11.9 % (11.5-14.5); Red Blood Cell (RBC) Count 4.67 mill/uL (4.20-5.40); White Blood Cell (WBC) Count 6.4 thou/uL (4.8-10.8)
--- NOTE | 2019-12-02 12:54 | RAD ---
EXAM: Chest 2 views: HISTORY: Preoperative evaluation COMPARISON: 10/15/2005 FINDINGS: Moderate size hiatal hernia. Heart size:Within normal limits. Lungs:Clear of acute process. Atherosclerotic changes of the aorta. No confluent pneumonia, overt edema, pleural effusion, pneumothorax, or other significant acute proce ss. IMPRESSION: Atherosclerosis of the aorta. No acute intrathoracic disease.
[2019-12-02 13:11] LABS: Anion Gap 13 mmol/L (10-20); BUN (Urea Nitrogen) 12 mg/dL (9.8-20.1); Calc. Creatinine Clearance 0 mL/min (70-130); Calcium 9.4 mg/dL (7.8-10.44); Carbon Dioxide 25 mmol/L (23-31); Chloride 107 mmol/L (98-107); Estimated GFR-MDRD 48; Glucose 98 mg/dL (83-110); Potassium 4.2 mmol/L (3.5-5.1); Sodium 141 mmol/L (136-145)
--- NOTE | 2019-12-05 08:19 | EKG ---
Test Reason : Blood Pressure : / mmHG Vent. Rate : 077 BPM Atrial Rate : 077 BPM P-R Int : 146 ms QRS Dur : 076 ms QT Int : 386 ms P-R-T Axes : 070 072 030 degrees QTc Int : 436 ms Normal sinus rhythm Septal infarct , age undetermined Abnormal ECG No previous ECGs available Confirmed by DR. Maurice ARNOLD ([id number]) on 12/05/2019 8:19:40 AM Referred By: ARIE Confirmed By:DR. Maurice ARNOLD
== END 2019-12-02 06:24 | disposition home or self-care (01) ==
LOC: LABBT 06:23
PROVIDERS: ATTEND Specialist
DX: Z01.818 Encounter for other preprocedural examination (principal); C83.31 Diffuse large B-cell lymphoma, lymph nodes of head, face, and neck; I70.0 Atherosclerosis of aorta
CPT/HCPCS: 71046; 80048; 85025; 93005; 93010

== ENCOUNTER 2019-12-02 08:56 | Day surgery (SDC) | payer MEDICARE, BC ==
[2019-11-29 14:33] VITALS: BMI 30.9
[2019-12-02 10:16] VITALS: BP 129/75; TEMP 98.4
--- NOTE | 2019-12-02 10:41 | RAD ---
Lumbar puncture with fluoroscopic guidance: 12/02/2019 HISTORY: Diffuse large B-cell lymphoma, evaluate for intrathecal disease FINDINGS: Informed consent obtained prior to the procedure. [employer] D[employer] imaging demonstrates a mild degree of dextroscoliosis within the lumbar spine as well as multilevel disc space narrowing and lateral osteophyte formation. Multilevel lower lumbar spine bilateral laminectomy changes are present. The skin overlying the lower lumbar spine was prepped and draped in normal sterile fashion and anesth etized with 1% buffered lidocaine. With intermittent fluoroscopic guidance, a 22-gauge spinal needle was advanced into the thecal sac at the L4-5 level and removal of the stylet yields clear cerebrospinal fluid. Approximately 10 cc of clear CSF was obtained and sent to the laboratory for assessment. Needle was removed. Patient tolerat ed the procedure well. Exposure data: 0.2 minutes of fluoroscopic time, 35.1 mcg/sq m IMPRESSION: Successful lumbar puncture with fluoroscopic guidance as detailed above.
== END 2019-12-02 11:30 | disposition home or self-care (01) ==
LOC: RAD 08:56
PROVIDERS: ATTEND Internal Medicine Hematology & Oncology
PROC: 009U3ZX Drainage of Spinal Canal, Percutaneous Approach, Diagnostic (ICD-10-PCS; principal; 2019-12-02)
PROC: B01B1ZZ Fluoroscopy of Spinal Cord using Low Osmolar Contrast (ICD-10-PCS; 2019-12-02)
DX: C83.31 Diffuse large B-cell lymphoma, lymph nodes of head, face, and neck (principal); I10 Essential (primary) hypertension; E03.9 Hypothyroidism, unspecified; M19.90 Unspecified osteoarthritis, unspecified site; Z79.82 Long term (current) use of aspirin; Z79.899 Other long term (current) drug therapy; Z88.8 Allergy status to other drugs, medicaments and biological substances
CPT/HCPCS: 62270; 71046; 80048; 85025; 88112; 88184; 93005

== ENCOUNTER 2019-12-03 07:00 | Day surgery (SDC) | payer MEDICARE, BC ==
[2019-12-02 11:58] VITALS: BMI 26.6
[2019-12-03] MEDS ORDERED: Ketorolac Tromethamine 30 MG/ML VIAL ONE (08:23)
[2019-12-03] MEDS ORDERED: Acetaminophen 500 MG TAB ONE (08:23)
[2019-12-03] MEDS ORDERED: Lidocaine 1% w/Epinephrine 1:100K 20 ML VIAL ONE (09:02)
[2019-12-03] MEDS ORDERED: Bupivacaine 0.25% HCL 30 ML VIAL ONE (09:02)
[2019-12-03] MEDS ORDERED: Heparin 5,000 UNITS/ML VIAL ONE (09:02)
[2019-12-03] MEDS ORDERED: Fentanyl 100 MCG/2 ML VIAL ONE (09:03)
--- NOTE | 2019-12-03 10:40 | OP ---
DATE OF PROCEDURE: 12/03/2019 PREOPERATIVE DIAGNOSIS: Lymphoma. POSTOPERATIVE DIAGNOSIS: Lymphoma. PROCEDURE PERFORMED: Placement of right subclavian low-profile power compatible MediPort. ANESTHESIA: General with laryngeal mask airway. INDICATIONS: The patient is an 84-year-old female. She recently had surgery for lymphoma involving her right temporal bone. She is taken to the operating room at this time for MediPort placement for chemotherapy administration. DESCRIPTION OF OPERATION: Informed consent was obtained. The patient was taken to the operating room where total intravenous anesthesia was obtained with the patient in supine position. Right periclavicular area was prepped with ChloraPrep and draped in sterile fashion. Local anesthetic was infiltrated and a large-gauge needle was passed under the clavicle in the subclavian vein. Guidewire was passed through the needle and fluoroscopically confirmed to enter the superior vena cava. Additional local anesthetic was infiltrated and transverse incision was created based on needle insertion site. A subcutaneous pocket was dissected inferiorly. Introducer dilator was passed over the guidewire under fluoroscopic guidance. The guidewire and dilator were removed, and the catheter was passed through the introducer. The tip of the catheter was positioned at the atriocaval junction and the catheter was trimmed to the appropriate length and secured to the locking hub of the MediPort. The port was then placed in the subcutaneous pocket where it was secured to the pectoral fascia with 2 interrupted sutures of 3-0 Prolene. The incision was then closed in layers with 3-0 and 4-0 Monocryl. Additional local anesthetic was infiltrated. The port was cannulated with a Colon needle and it aspirated blood freely and was flushed with heparinized saline. Dermabond was placed externally on the skin incision. There were no complications. Blood loss was negligible. The patient tolerated the procedure well and was taken to recovery room in stable condition. FINDINGS: I selected a low-profile port secondary to her body habitus. This was placed uneventfully on the initial pass into the right subclavian vein. There was essentially no blood loss. Fluoroscopy was used throughout. There were no complications. Job ID: [id number]
--- NOTE | 2019-12-03 10:44 | RAD ---
EXAM: Chest one view: HISTORY: Right subclavian catheter injection port placement. COMPARISON: 12/02/2019 FINDINGS: Right subclavian catheter and injection port has been placed. Heart size: Within normal limits. Lungs: Clear of acute process. No evidence for confluent pneumonia, pleural effusion, acute edema, or pneumothorax, or other signifi cant acute process. IMPRESSION: No significant acute intrathoracic disease.
[2019-12-03] MEDS ORDERED: PROPOFOL 200 MG/20 ML VIAL ONE (11:19)
[2019-12-03] MEDS ORDERED: EPHEDRINE 25 MG/5 ML SYRINGE ONE (11:19)
[2019-12-03] MEDS ORDERED: Lidocaine 1% PF 5 ML VIAL ONE (11:19)
== END 2019-12-03 11:20 | disposition home or self-care (01) ==
LOC: SDC 07:00
PROVIDERS: ATTEND Specialist
PROC: 0JH63WZ Insertion of Totally Implantable Vascular Access Device into Chest Subcutaneous Tissue and Fascia, Percutaneous Approach (ICD-10-PCS; principal; 2019-12-03)
PROC: 02HV33Z Insertion of Infusion Device into Superior Vena Cava, Percutaneous Approach (ICD-10-PCS; 2019-12-03)
DX: C83.31 Diffuse large B-cell lymphoma, lymph nodes of head, face, and neck (principal); M19.90 Unspecified osteoarthritis, unspecified site; E03.9 Hypothyroidism, unspecified; I10 Essential (primary) hypertension; K21.9 Gastro-esophageal reflux disease without esophagitis; Z79.82 Long term (current) use of aspirin; Z79.899 Other long term (current) drug therapy; Z88.8 Allergy status to other drugs, medicaments and biological substances
CPT/HCPCS: 36561; 71045; 80053; 82248; 83615; 84100; 84550; C1788; J0690; J1642; J1644; J1885; J2001; J2704; J3010; S0020

== ENCOUNTER 2019-12-05 13:06 | Outpatient (CLI) | payer MEDICARE, BC ==
[2019-12-05] MEDS ORDERED: Magnevist 469MG/ML 20 ML VIAL ONE (14:43)
--- NOTE | 2019-12-05 15:13 | MRI ---
MRI ABDOMEN WITH AND WITHOUT IV CONTRAST: HISTORY: An 84-year-old female with diffuse large B-cell lymphoma diagnosed on the right temporal skull mass b iopsy of 11/04/2019. FINDINGS: Correlation is made with the CT chest, abdomen, and pelvis of 10/26/2019 and PET scan of 11/22/2019. There is a 2 cm mass in the anterior aspect of the left lobe of the liver with low T1, high T2 signal and no postcontrast enhancement, consistent with a cyst. There are multiple foci of mildly increase d T2 signal and restricted diffusion in the liver which were also seen on the CT scan. These are not well visualized on the post contrast images. The 12 mm solitary FDG-avid lesion on the PET scan not ed in the dome of the liver is vaguely seen on the early post contrast images. Gallbladder is normal. There is no abnormal biliary duct dilatation. The spleen, adrenal glands, an d kidneys are normal. There is a 1 cm cyst arising from the anterior aspect of the body of the pancreas. The spleen, adrenal glands, and kidneys are normal. No free fluid or lymphadenopathy is seen in the abdomen. There is no evidence of aneurysmal dilatati on of the abdominal aorta. The bone marrow signal is normal. A moderate-sized hiatal hernia is pres ent. IMPRESSION: 1. Moderate-sized hiatal hernia. 2. A 1 cm pancreatic cystic mass. 3. Left hepatic lobe cyst. 4. Suspicious lesions in the liver. POS: [facility]
== END 2019-12-05 13:07 | disposition home or self-care (01) ==
LOC: MRI 13:06 → ULT 13:07
PROVIDERS: ATTEND Internal Medicine Hematology & Oncology
DX: Z51.11 Encounter for antineoplastic chemotherapy (principal); C83.31 Diffuse large B-cell lymphoma, lymph nodes of head, face, and neck; K76.89 Other specified diseases of liver; R93.2 Abnormal findings on diagnostic imaging of liver and biliary tract; I08.1 Rheumatic disorders of both mitral and tricuspid valves; K86.2 Cyst of pancreas; K44.9 Diaphragmatic hernia without obstruction or gangrene; Z79.899 Other long term (current) drug therapy
CPT/HCPCS: 74183; 93306; A9579

== ENCOUNTER 2019-12-30 10:50 | Outpatient (CLI) | payer MEDICARE, BC ==
--- NOTE | 2019-12-30 11:23 | ULT ---
EXAM: Right lower extremity venous Doppler US HISTORY: Right lower extremity edema and pain FINDINGS: Grayscale, color-flow, Doppler evaluation, spectral analysis of the right lower extremity venous stru ctures is performed with 2-D imaging. The right common femoral, superficial femoral, popliteal, posterior tibial, proximal greater saphenous and profunda femoral veins are imaged. There is normal luminal compressibility, flow, and augmentation the visualized deep venous structures of the right lower extremity. IMPRESSION: No evidence of a deep vein thrombosis in the right lower extremity.
== END 2019-12-30 10:51 | disposition home or self-care (01) ==
LOC: BICULT 10:50
PROVIDERS: ATTEND Internal Medicine Hematology & Oncology
DX: R60.0 Localized edema (principal); M79.604 Pain in right leg; C83.31 Diffuse large B-cell lymphoma, lymph nodes of head, face, and neck
CPT/HCPCS: 80053; 82248; 83615; 84100; 84550; 86301

== ENCOUNTER 2020-02-06 08:52 | Outpatient (CLI) | payer MEDICARE, BC ==
--- NOTE | 2020-02-06 13:59 | PET ---
Radionucleotide PET scan with CT attenuation correction HISTORY: Diffuse large B-cell lymphoma. Malignant neoplasm body of the pancreas. Restaging. COMPARISON: 11/22/2019. FINDINGS: Physiologic uptake of radiotracer is present throughout the enteric system and along each u rinary tract. Were abnormal uptake was associated with lesions in the left liver lobe on the prior study, no abnorm al uptake is now apparent. No new areas of abnormal uptake. Muscular uptake is noted at the posterior aspect of the right thigh in the upper back. Heterogeneous uptake within the skeleton is likely reactive due to recent treatment. Small foci of contamination are present on the bedding to the left of the patient. Nondiagnostic CT attenuation correction images show a right temporal craniectomy defect. Moderate-siz ed hiatal hernia. Small stones in the dependent portion of the gallbladder lumen. Small cyst in the left liver lobe is stable. IMPRESSION : Complete response. Resolution of the liver lesion. No new abnormalities. [place] score 1. Cholelithiasis. Hiatal hernia. Chronic-type findings are stable.
--- NOTE | 2020-02-06 15:01 | MRI ---
MRI ABDOMEN WITH AND WITHOUT IV CONTRAST: HISTORY: Diffuse large B-cell lymphoma, lymph nodes of head, face, and neck. Disease of pancreas, unspecified . Malignant neoplasm of body of pancreas. COMPARISON: 12/05/2019. CORRELATION: PET CT from today. FINDINGS: The 2 cm cyst in the anterior aspect of the left lobe of the liver is stable. There has been interva l resolution of the multiple foci of mildly increased T2 signal and restricted diffusion in the liver with a solitary residual focus in the right lobe of the liver which demonstrates vague enhancement o n the postcontrast images. This is not hypermetabolic on the PET scan and is smaller compared to the previous MRI. The 1 cm cyst arising from the anterior aspect of the body of the pancreas is stable. No abnormal bi liary or pancreatic ductal dilatation is seen. The gallbladder, spleen, adrenal glands, and kidneys are normal. No free fluid or lymphadenopathy is seen. Moderate-sized hiatal hernia is stable. There is no evide nce of aneurysmal dilatation of the abdominal aorta. The bone marrow signal is normal. IMPRESSION: 1. Significant interval improvement in the liver lesions since 12/05/2019. 2. Stable 1 cm pancreatic cystic mass. 3. Left hepatic lobe cyst. 4. Moderate-sized hiatal hernia. POS: [facility]
== END 2020-02-06 08:53 | disposition home or self-care (01) ==
LOC: PET 08:52
PROVIDERS: ATTEND Internal Medicine Hematology & Oncology
DX: C83.31 Diffuse large B-cell lymphoma, lymph nodes of head, face, and neck (principal); C25.1 Malignant neoplasm of body of pancreas; K86.9 Disease of pancreas, unspecified; K86.2 Cyst of pancreas; K76.89 Other specified diseases of liver; K44.9 Diaphragmatic hernia without obstruction or gangrene; K80.20 Calculus of gallbladder without cholecystitis without obstruction
CPT/HCPCS: 74183; 78815; A9552

== ENCOUNTER 2020-04-16 08:40 | Outpatient (CLI) | payer MEDICARE, BC ==
--- NOTE | 2020-04-16 10:39 | PET ---
PET W CT Skull to Mid Thigh History: Lymphoma and pancreatic cancer. Evaluate for response to treatment. Comparison: PET/CT February 06, 2020 Findings: PET CT from the skull-mid thigh was performed after the intravenous administration 10.8 mCi F-18 FDG. No significant radiotracer uptake within the right temporal resection cavity aside from scar tissue, unchanged. No abnormal radiotracer uptake within the liver. No new suspicious hepatic uptake. The cystic pancreatic lesion does not have abnormal increased radio tracer uptake. Physiologic uptake within the renal collecting systems and bowel. Asymmetric right lateral paraspinal muscle felt to be physiologic likely sequela of patient's overlying scoliosis. On the attenuation corrected noncontrast CT images images there is atelectasis in the lung bases. Lar ge hiatal hernia. Small volume pericardial fluid. Moderate vascular calcifications. No dilated loops of large or small bowel. Bilateral hip arthroplast ies. Impression: Continued complete response to therapy. Deauville score: 1
== END 2020-04-16 08:41 | disposition home or self-care (01) ==
LOC: PET 08:40
PROVIDERS: ATTEND Internal Medicine Hematology & Oncology
DX: C83.31 Diffuse large B-cell lymphoma, lymph nodes of head, face, and neck (principal); C25.1 Malignant neoplasm of body of pancreas
CPT/HCPCS: 78815; A9552

== ENCOUNTER 2020-09-08 07:50 | Outpatient (CLI) | payer MEDICARE, BC ==
--- NOTE | 2020-09-08 13:45 | PET ---
PET CT: HISTORY: Diffuse large B cell lymphoma. 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 Exam requested to ounr diaz for response to treatment. Patient is currently undergoing chemotherapy and received radiation t herapy to the right temporal bone in May 2020. TECHNIQUE: PET scanning with CT attenuation correction was performed from the vertex through the proximal thighs following the intravenous administration of 13 mCi F18-FDG in the right antecubital fossa. COMPARISON: 04/16/2020. FINDINGS: No papa hypermetabolism is seen in the neck, mediastinum, hilar regions, axilla, abdomen, pelvis, or inguinal regions. No hypermetabolic pulmonary nodules, liver, adrenal, or skeletal lesions are seen. There is physiologic activity in the brain, GI and tracts, and the heart. The CT scan used for attenuation correction demonstrates no evidence of pleural or pericardial effusi ons or ascites. There is a large hiatal hernia, cholelithiasis, and bilateral hip arthroplasties. Postop changes in the right temporal region are again seen. IMPRESSION: No evidence of viable lymphoma. Continued complete response to therapy (Deauville score 1). POS: [facility]
== END 2020-09-08 07:51 | disposition home or self-care (01) ==
LOC: PET 07:50
PROVIDERS: ATTEND Internal Medicine Hematology & Oncology
DX: C25.1 Malignant neoplasm of body of pancreas (principal); C83.31 Diffuse large B-cell lymphoma, lymph nodes of head, face, and neck
CPT/HCPCS: 78815; A9552

== ENCOUNTER 2021-03-04 08:05 | Outpatient (CLI) | payer MEDICARE, BC | END 2021-03-04 08:06 | disposition home or self-care (01) | LOC: PET 08:05 | PROVIDERS: ATTEND Internal Medicine Hematology & Oncology | DX: C83.31 Diffuse large B-cell lymphoma, lymph nodes of head, face, and neck (principal) | CPT/HCPCS: 78815; A9552 ==

== ENCOUNTER 2021-08-23 08:23 | Emergency (ER) | payer OTHER, MEDICARE, BC ==
[2021-08-23 12:09] LABS: Bilirubin Negative (Negative); Blood, Urine Negative (Negative); Clarity Clear (Clear); Glucose, Urine (Dipstick) Normal (Negative); Ketone, Urine Negative (Negative); Leukocyte Negative Leu/uL (Negative); Nitrite Negative (Negative); Protein, Urine (Dipstick) Negative (Neg-Trace); Specific Gravity, Urine 1.007 (1.002-1.036); Urobilinogen Normal mg/dL (Less than 2); pH, Urine 7.5 (5.0-9.0)
[2021-08-23] MEDS ORDERED: Ibuprofen 800 MG TAB ONE (13:12)
== END 2021-08-23 13:16 | disposition home or self-care (01) ==
LOC: ERS 08:23
DX: S09.90XA Unspecified injury of head, initial encounter (principal); S80.11XA Contusion of right lower leg, initial encounter; W01.10XA Fall on same level from slipping, tripping and stumbling with subsequent striking against unspecified object, initial encounter; Y92.009 Unspecified place in unspecified non-institutional (private) residence as the place of occurrence of the external cause
CPT/HCPCS: 70450; 72125; 81003

== ENCOUNTER 2021-09-09 07:54 | Outpatient (CLI) | payer MEDICARE, BC | END 2021-09-09 07:55 | disposition home or self-care (01) | LOC: PET 07:54 | PROVIDERS: ATTEND Internal Medicine Hematology & Oncology | DX: C83.31 Diffuse large B-cell lymphoma, lymph nodes of head, face, and neck (principal); C25.1 Malignant neoplasm of body of pancreas | CPT/HCPCS: 78815; A9552 ==

== ENCOUNTER 2021-09-09 15:57 | Emergency (ER) | payer MEDICARE, BC | END 2021-09-09 17:10 | disposition left against medical advice (07) | LOC: ERS 15:57 | DX: Z53.21 Procedure and treatment not carried out due to patient leaving prior to being seen by health care provider (principal) ==

== ENCOUNTER 2021-10-13 15:05 | Inpatient (IN) | payer MEDICARE, BC ==
[2021-10-13] MEDS ORDERED: Piperacillin/Tazobactam 3.375 GM VIAL ONE (15:26)
[2021-10-13] MEDS ORDERED: Sodium Chloride 0.9% 100 ML ONE (15:26)
[2021-10-13 16:20] LABS: #Eosinphils 0.1 thou/uL (0.0-0.7); #Lymphocytes 1.2 thou/uL (1.20-3.40); #Monocytes 0.8 thou/uL (0.11-0.59); #Neutrophils 8.3 thou/uL (1.40-6.50); %Eosinophils 0.6 % (0.0-10.0); %Lymphocytes 11.6 % (21.0-51.0); %Monocytes 7.8 % (0.0-10.0); %Neutrophils 80.1 % (42.0-75.0); Hemoglobin 12.2 g/dL (12.0-16.0); Mean Corpuscular HGB CONC 33.8 g/dL (32.0-36.0); Mean Corpuscular Hemoglobin 31.2 pg (27.0-31.0); Mean Corpuscular Volume 92.4 fL (78.0-98.0); Mean Platelet Volume 6.7 fL (7.4-10.4); Platelet Count 415 thou/uL (130-400); RBC Distribution Width 12.7 % (11.5-14.5); Red Blood Cell (RBC) Count 3.91 mill/uL (4.20-5.40); White Blood Cell (WBC) Count 10.3 thou/uL (4.8-10.8)
[2021-10-13 16:40] LABS: Anion Gap 18 mmol/L (10-20); BUN (Urea Nitrogen) 11 mg/dL (9.8-20.1); Calc. Creatinine Clearance 0 mL/min (70-130); Carbon Dioxide 20 mmol/L (23-31); Chloride 102 mmol/L (98-107); Glucose 94 mg/dL (83-110); Potassium 3.5 mmol/L (3.5-5.1); Sodium 136 mmol/L (136-145)
[2021-10-13 16:47] LABS: SARS-CoV-2 NAA Rapid Test Not Detected (NotDetected)
[2021-10-13] MEDS ORDERED: Fentanyl 100 MCG/2 ML VIAL ONE (19:31)
[2021-10-13] MEDS ORDERED: Sodium Chloride 0.9% 10 ML ONE (19:31)
[2021-10-13] MEDS ORDERED: HYDROmorphone 2 MG/ML VIAL ONE (19:31)
[2021-10-13] MEDS ORDERED: Ondansetron PF 4 MG/2 ML Vial ONE (20:19)
[2021-10-13] MEDS ORDERED: PROPOFOL 200 MG/20 ML VIAL ONE (20:19)
[2021-10-13] MEDS ORDERED: HYDROmorphone 2 MG/ML VIAL SLOW IVP PRN (20:58)
[2021-10-13] MEDS ORDERED: Ondansetron HCl/PF 4 MG/2 ML Vial IVP PRN (20:58)
[2021-10-13] MEDS ORDERED: Promethazine HCl 25 MG/ML VIAL IM PRN (20:58)
[2021-10-13] MEDS ORDERED: Meperidine HCl/PF 25 MG/ML VIAL SLOW IVP PRN (20:58)
[2021-10-13] MEDS ORDERED: Promethazine HCl 25 MG/ML VIAL IVPB PRN (20:58)
[2021-10-13] MEDS ORDERED: Dextrose 50% Abboject 50 ML SYRINGE SLOW IVP PRN (23:00)
[2021-10-13] MEDS ORDERED: hydrALAZINE 20 MG/ML VIAL SLOW IVP PRN (23:00)
[2021-10-13] MEDS ORDERED: Dextrose 5% in Water 1,000 ML IV PRN (23:00)
[2021-10-13] MEDS ORDERED: Ondansetron PF 4 MG/2 ML Vial IVP PRN (23:00)
[2021-10-13] MEDS: Rosuvastatin 20 MG TAB PO SCH (23:11)
[2021-10-13] MEDS: Docusate 100 MG CAP PO SCH (23:11)
[2021-10-13] MEDS: D5 1/2 NS w/20 mEq KCL 1,000 ML IV SCH (23:12)
[2021-10-13] MEDS: Aspirin 325 MG TAB PO SCH (23:12)
[2021-10-13 23:22] VITALS: BMI 25.7
[2021-10-14] MEDS: Piperacillin/Tazobactam 3.375 GM in Sodium Chloride 0.9% 100 ML IVPB SCH ×3 (02:15→16:27)
[2021-10-14] MEDS: Levothyroxine Sodium 100 MCG TAB PO SCH (05:47)
[2021-10-14] MEDS ORDERED: D5 1/2 NS w/20 mEq KCL 1,000 ML IV SCH (08:00)
[2021-10-14] MEDS: HYDROcodone/Acetaminophen 7.5/325 mg Tablet PO PRN (08:52)
[2021-10-14] MEDS ORDERED: Ciprofloxacin 500 MG TAB PO SCH (10:45)
[2021-10-14] MEDS: Ciprofloxacin 500 MG TAB ONE ×2 (12:00→13:19)
[2021-10-14] MEDS: D5 1/2 NS w/20 mEq KCL 1,000 ML IV SCH ×2 (12:45→17:01)
[2021-10-14 20:13] LABS: #Eosinphils 0.2 thou/uL (0.0-0.7); #Monocytes 0.6 thou/uL (0.11-0.59); %Basophils 0.1 % (0.0-1.0); %Eosinophils 3.6 % (0.0-10.0); %Lymphocytes 14.8 % (21.0-51.0); %Monocytes 8.7 % (0.0-10.0); %Neutrophils 72.8 % (42.0-75.0); Hemoglobin 10.1 g/dL (12.0-16.0); Mean Corpuscular HGB CONC 32.4 g/dL (32.0-36.0); Mean Corpuscular Hemoglobin 29.8 pg (27.0-31.0); Mean Corpuscular Volume 92.1 fL (78.0-98.0); Mean Platelet Volume 6.3 fL (7.4-10.4); Platelet Count 360 thou/uL (130-400); RBC Distribution Width 12.5 % (11.5-14.5); Red Blood Cell (RBC) Count 3.39 mill/uL (4.20-5.40); White Blood Cell (WBC) Count 6.9 thou/uL (4.8-10.8)
[2021-10-14] MEDS: Aspirin 325 MG TAB PO SCH ×2 (20:41→21:08)
[2021-10-14] MEDS: Ciprofloxacin 500 MG TAB PO SCH (20:41)
[2021-10-14] MEDS: Rosuvastatin 20 MG TAB PO SCH (20:42)
[2021-10-14] MEDS: Docusate 100 MG CAP PO SCH (20:42)
[2021-10-15] MEDS: Piperacillin/Tazobactam 3.375 GM in Sodium Chloride 0.9% 100 ML IVPB SCH ×3 (00:51→17:40)
[2021-10-15] MEDS: HYDROcodone/Acetaminophen 7.5/325 mg Tablet PO PRN (01:32)
[2021-10-15] MEDS: Ciprofloxacin 500 MG TAB PO SCH ×2 (06:30→20:33)
[2021-10-15] MEDS: Levothyroxine Sodium 100 MCG TAB PO SCH (06:30)
[2021-10-15 07:14] LABS: #Eosinphils 0.3 thou/uL (0.0-0.7); #Lymphocytes 1.2 thou/uL (1.20-3.40); #Monocytes 0.5 thou/uL (0.11-0.59); #Neutrophils 4.1 thou/uL (1.40-6.50); %Basophils 0.2 % (0.0-1.0); %Eosinophils 4.6 % (0.0-10.0); %Lymphocytes 19.4 % (21.0-51.0); %Monocytes 7.9 % (0.0-10.0); %Neutrophils 67.9 % (42.0-75.0); Hemoglobin 11.2 g/dL (12.0-16.0); Mean Corpuscular HGB CONC 31.7 g/dL (32.0-36.0); Mean Corpuscular Hemoglobin 29.7 pg (27.0-31.0); Mean Corpuscular Volume 93.7 fL (78.0-98.0); Mean Platelet Volume 6.7 fL (7.4-10.4); Platelet Count 393 thou/uL (130-400); RBC Distribution Width 12.6 % (11.5-14.5); Red Blood Cell (RBC) Count 3.76 mill/uL (4.20-5.40)
[2021-10-15 07:26] LABS: Anion Gap 12 mmol/L (10-20); BUN (Urea Nitrogen) 6 mg/dL (9.8-20.1); Calc. Creatinine Clearance 52 mL/min (70-130); Calcium 8.7 mg/dL (7.8-10.44); Carbon Dioxide 25 mmol/L (23-31); Chloride 108 mmol/L (98-107); Glucose 86 mg/dL (83-110); Potassium 3.8 mmol/L (3.5-5.1); Sodium 141 mmol/L (136-145)
[2021-10-15] MEDS: D5 1/2 NS w/20 mEq KCL 1,000 ML IV SCH (17:40)
[2021-10-15] MEDS: Aspirin 325 MG TAB PO SCH (20:32)
[2021-10-15] MEDS: Docusate 100 MG CAP PO SCH (20:33)
[2021-10-15] MEDS: Rosuvastatin 20 MG TAB PO SCH (20:33)
[2021-10-16] MEDS: Piperacillin/Tazobactam 3.375 GM in Sodium Chloride 0.9% 100 ML IVPB SCH ×3 (01:50→17:02)
[2021-10-16] MEDS: Levothyroxine Sodium 100 MCG TAB PO SCH (05:54)
[2021-10-16] MEDS: Ciprofloxacin 500 MG TAB PO SCH ×2 (05:54→20:55)
[2021-10-16] MEDS: HYDROcodone/Acetaminophen 7.5/325 mg Tablet PO PRN (06:12)
[2021-10-16] MEDS: D5 1/2 NS w/20 mEq KCL 1,000 ML IV SCH (16:29)
[2021-10-16] MEDS ORDERED: diphenhydrAMINE 25 MG CAP PO SCH (20:30)
[2021-10-16] MEDS: Docusate 100 MG CAP PO SCH (21:08)
[2021-10-16] MEDS: Aspirin 325 MG TAB PO SCH (21:08)
[2021-10-16] MEDS: Rosuvastatin 20 MG TAB PO SCH (21:08)
[2021-10-16 21:17] VITALS: TEMP 97.8
[2021-10-17] MEDS: Piperacillin/Tazobactam 3.375 GM in Sodium Chloride 0.9% 100 ML IVPB SCH ×2 (01:18→09:57)
[2021-10-17] MEDS: Ciprofloxacin 500 MG TAB PO SCH (06:17)
[2021-10-17] MEDS: Levothyroxine Sodium 100 MCG TAB PO SCH (06:17)
[2021-10-17 12:22] VITALS: BP 151/80
== END 2021-10-17 12:44 | disposition home health service (06) | DRG 581 ==
LOC: SDC 15:05 → MSONC 20:51
PROVIDERS: ADMIT Specialist; ATTEND Specialist
PROC: 0KBS0ZZ Excision of Right Lower Leg Muscle, Open Approach (ICD-10-PCS; principal; 2021-10-13)
DX: L02.415 Cutaneous abscess of right lower limb (principal); Z20.822 Contact with and (suspected) exposure to COVID-19; I10 Essential (primary) hypertension; E78.5 Hyperlipidemia, unspecified; G40.909 Epilepsy, unspecified, not intractable, without status epilepticus; E03.9 Hypothyroidism, unspecified; F32.A Depression, unspecified; L03.115 Cellulitis of right lower limb; B95.62 Methicillin resistant Staphylococcus aureus infection as the cause of diseases classified elsewhere; Z79.82 Long term (current) use of aspirin; Z79.890 Hormone replacement therapy; Z79.899 Other long term (current) drug therapy
CPT/HCPCS: 36415; 80048; 85025; 87070; 87076; 87077; 87186; 87205; J1170; J2405; J2543; J2704; J3010; J3480; J3490; U0002

== ENCOUNTER 2021-10-18 12:52 | Inpatient (IN) | payer MEDICARE, BC ==
[~2021-10-18 12:52] MED LIST: Iopamidol 370 76% 100 ML VIAL ONE; Iopamidol-370 76% 500 ML 1 ML ONE
[2021-10-18 13:16] LABS: #Eosinphils 0.1 thou/uL (0.0-0.7); #Lymphocytes 1.5 thou/uL (1.20-3.40); #Monocytes 0.4 thou/uL (0.11-0.59); #Neutrophils 9.1 thou/uL (1.40-6.50); %Eosinophils 0.8 % (0.0-10.0); %Lymphocytes 13.2 % (21.0-51.0); %Monocytes 3.8 % (0.0-10.0); %Neutrophils 82.1 % (42.0-75.0); Hemoglobin 13.4 g/dL (12.0-16.0); Mean Corpuscular HGB CONC 31.1 g/dL (32.0-36.0); Mean Corpuscular Hemoglobin 29.2 pg (27.0-31.0); Mean Corpuscular Volume 93.9 fL (78.0-98.0); Mean Platelet Volume 6.7 fL (7.4-10.4); Platelet Count 523 thou/uL (130-400); Red Blood Cell (RBC) Count 4.59 mill/uL (4.20-5.40); White Blood Cell (WBC) Count 11.1 thou/uL (4.8-10.8)
[2021-10-18 13:24] LABS: INR-International Normal Ratio 1.1; Prothrombin Time 14.6 sec (12.0-14.7)
[2021-10-18] MEDS ORDERED: Heparin 10,000 UNITS/ 10 ML VIAL ONE (13:34)
[2021-10-18] MEDS ORDERED: Phenylephrine 10 MG/ML VIAL ONE (13:39)
[2021-10-18] MEDS ORDERED: Fentanyl 100 MCG/2 ML VIAL ONE (13:39)
[2021-10-18 13:41] LABS: ALT (SGPT) 19 U/L (8-55); AST (SGOT) 24 U/L (5-34); Albumin 3.4 g/dL (3.4-4.8); Alkaline Phosphatase 91 U/L (40-110); Anion Gap 18 mmol/L (10-20); BUN (Urea Nitrogen) 12 mg/dL (9.8-20.1); Bilirubin, Total 0.3 mg/dL (0.2-1.2); CK (CPK) 114 U/L (29-168); Calc. Creatinine Clearance 0 mL/min (70-130); Calcium 9.8 mg/dL (7.8-10.44); Carbon Dioxide 17 mmol/L (23-31); Chloride 108 mmol/L (98-107); Globulin 3.9 g/dL (2.4-3.5); Glucose 166 mg/dL (83-110); Magnesium 1.8 mg/dL (1.6-2.6); Potassium 3.5 mmol/L (3.5-5.1); Protein, Total 7.3 g/dL (5.8-8.1); Sodium 139 mmol/L (136-145)
[2021-10-18] MEDS ORDERED: Rocuronium Bromide 10 MG/ML (10ML VIAL) ONE (14:09)
[2021-10-18] MEDS ORDERED: PROPOFOL 200 MG/20 ML VIAL ONE (14:09)
[2021-10-18] MEDS ORDERED: Glycopyrrolate 0.2 MG/ML 5 ML SYRINGE ONE (14:09)
[2021-10-18] MEDS ORDERED: Lidocaine 1% PF 5 ML VIAL ONE (14:09)
[2021-10-18] MEDS ORDERED: Mag-Al 1200 mg/1200 mg/30 ML UDCUP PO PRN (15:52)
[2021-10-18] MEDS ORDERED: Acetaminophen 325 MG TAB PO PRN (15:52)
[2021-10-18] MEDS ORDERED: hydrALAZINE 20 MG/ML VIAL SLOW IVP PRN (15:52)
[2021-10-18] MEDS ORDERED: Labetalol HCl 100 MG/20 ML VIAL SLOW IVP PRN (15:52)
[2021-10-18] MEDS ORDERED: niCARdipine 25 MG in Sodium Chloride 0.9% 250 ML 240 ML IVPB PRN (15:52)
[2021-10-18] MEDS ORDERED: Docusate 100 MG CAP PO PRN (15:52)
[2021-10-18 16:58] LABS: Lactic Acid 3.8 mmol/L (0.5-2.2)
[2021-10-18] MEDS: Sodium Chloride 0.9% 1,000 ML IV SCH (18:09)
[2021-10-18 20:16] LABS: SARS-CoV-2 NAA Rapid Test Not Detected (NotDetected)
[2021-10-19] MEDS: Atorvastatin Calcium 40 MG TAB PO SCH ×2 (00:26→23:42)
[2021-10-19 03:23] LABS: #Eosinphils 0.1 thou/uL (0.0-0.7); #Lymphocytes 1.6 thou/uL (1.20-3.40); #Monocytes 0.9 thou/uL (0.11-0.59); #Neutrophils 9.3 thou/uL (1.40-6.50); %Basophils 0.2 % (0.0-1.0); %Eosinophils 0.5 % (0.0-10.0); %Lymphocytes 13.5 % (21.0-51.0); %Monocytes 7.4 % (0.0-10.0); %Neutrophils 78.5 % (42.0-75.0); Hemoglobin 11.8 g/dL (12.0-16.0); Mean Corpuscular HGB CONC 32.4 g/dL (32.0-36.0); Mean Corpuscular Hemoglobin 30.3 pg (27.0-31.0); Mean Corpuscular Volume 93.4 fL (78.0-98.0); Mean Platelet Volume 6.4 fL (7.4-10.4); Platelet Count 457 thou/uL (130-400); RBC Distribution Width 13.1 % (11.5-14.5); Red Blood Cell (RBC) Count 3.92 mill/uL (4.20-5.40); White Blood Cell (WBC) Count 11.8 thou/uL (4.8-10.8)
[2021-10-19 04:11] LABS: Anion Gap 17 mmol/L (10-20); BUN (Urea Nitrogen) 9 mg/dL (9.8-20.1); Calc. Creatinine Clearance 67 mL/min (70-130); Calcium 8.5 mg/dL (7.8-10.44); Carbon Dioxide 14 mmol/L (23-31); Cardiac Risk 3.1 (Less than 4.5); Chloride 114 mmol/L (98-107); Cholesterol 113 mg/dl (< 200 Desired); Glucose 82 mg/dL (83-110); HDL Cholesterol 36 mg/dL (>60 Neg Risk); LDL Cholesterol, Calculated 59 mg/dL; Potassium 3.7 mmol/L (3.5-5.1); Sodium 141 mmol/L (136-145); Triglycerides 90 mg/dL (Less than 150)
[2021-10-19] MEDS: Enoxaparin Sodium 30 MG/0.3 ML SYRINGE SC SCH (08:03)
[2021-10-19] MEDS: Aspirin 325 mg Enteric Coated Tablet PO SCH (08:03)
[2021-10-19] MEDS: Aspirin 300 MG Suppository PR SCH (08:03)
[2021-10-19] MEDS: Sodium Chloride 0.9% 1,000 ML IV SCH ×3 (08:03→23:54)
[2021-10-19] MEDS ORDERED: FLU VACC QS2021-22(65YR UP)/PF 240 MCG/0.7 ML SYRINGE IM ONE (09:00)
[2021-10-20 07:59] LABS: #Eosinphils 0.1 thou/uL (0.0-0.7); #Monocytes 0.4 thou/uL (0.11-0.59); #Neutrophils 6.4 thou/uL (1.40-6.50); %Basophils 0.2 % (0.0-1.0); %Eosinophils 1.1 % (0.0-10.0); %Lymphocytes 12.4 % (21.0-51.0); %Monocytes 5.5 % (0.0-10.0); %Neutrophils 80.7 % (42.0-75.0); Hemoglobin 10.5 g/dL (12.0-16.0); Mean Corpuscular Hemoglobin 29.6 pg (27.0-31.0); Mean Corpuscular Volume 95.5 fL (78.0-98.0); Mean Platelet Volume 6.5 fL (7.4-10.4); Platelet Count 373 thou/uL (130-400); RBC Distribution Width 13.1 % (11.5-14.5); Red Blood Cell (RBC) Count 3.56 mill/uL (4.20-5.40); White Blood Cell (WBC) Count 7.9 thou/uL (4.8-10.8)
[2021-10-20 08:26] LABS: ALT (SGPT) 23 U/L (8-55); AST (SGOT) 25 U/L (5-34); Albumin 2.7 g/dL (3.4-4.8); Alkaline Phosphatase 74 U/L (40-110); Anion Gap 12 mmol/L (10-20); BUN (Urea Nitrogen) 6 mg/dL (9.8-20.1); Bilirubin, Total 0.3 mg/dL (0.2-1.2); Calc. Creatinine Clearance 85 mL/min (70-130); Calcium 8.2 mg/dL (7.8-10.44); Carbon Dioxide 17 mmol/L (23-31); Chloride 114 mmol/L (98-107); Globulin 2.9 g/dL (2.4-3.5); Glucose 85 mg/dL (83-110); Magnesium 1.7 mg/dL (1.6-2.6); Potassium 3.4 mmol/L (3.5-5.1); Protein, Total 5.6 g/dL (5.8-8.1); Sodium 140 mmol/L (136-145)
[2021-10-20] MEDS: Aspirin 300 MG Suppository PR SCH (09:27)
[2021-10-20] MEDS: Enoxaparin Sodium 30 MG/0.3 ML SYRINGE SC SCH (09:29)
[2021-10-20] MEDS: Pantoprazole 40 MG VIAL IVP SCH (09:30)
[2021-10-20] MEDS: Aspirin 325 mg Enteric Coated Tablet PO SCH (09:30)
[2021-10-20] MEDS: Sodium Chloride 0.9% 1,000 ML IV SCH (12:53)
[2021-10-20] MEDS: Atorvastatin Calcium 40 MG TAB PO SCH (19:31)
[2021-10-21] MEDS: Sodium Chloride 0.9% 1,000 ML IV SCH ×2 (01:43→16:38)
[2021-10-21] MEDS ORDERED: Potassium Chloride 10 MEQ in Premix Bag 1 BAG IVPB SCH (10:30)
[2021-10-21] MEDS: Enoxaparin Sodium 30 MG/0.3 ML SYRINGE SC SCH (11:31)
[2021-10-21] MEDS: Pantoprazole 40 MG VIAL IVP SCH (11:32)
[2021-10-21] MEDS: Aspirin 300 MG Suppository PR SCH (11:36)
[2021-10-21] MEDS: Aspirin 325 mg Enteric Coated Tablet PO SCH (13:16)
[2021-10-21] MEDS: Atorvastatin Calcium 40 MG TAB PO SCH (20:31)
[2021-10-22] MEDS: Sodium Chloride 0.9% 1,000 ML IV SCH ×2 (06:13→18:35)
[2021-10-22 08:45] LABS: #Eosinphils 0.1 thou/uL (0.0-0.7); #Lymphocytes 0.9 thou/uL (1.20-3.40); #Monocytes 0.5 thou/uL (0.11-0.59); #Neutrophils 7.6 thou/uL (1.40-6.50); %Eosinophils 0.7 % (0.0-10.0); %Lymphocytes 9.9 % (21.0-51.0); %Monocytes 5.1 % (0.0-10.0); %Neutrophils 84.3 % (42.0-75.0); Hemoglobin 11.8 g/dL (12.0-16.0); Mean Corpuscular HGB CONC 33.1 g/dL (32.0-36.0); Mean Corpuscular Hemoglobin 30.2 pg (27.0-31.0); Mean Corpuscular Volume 91.4 fL (78.0-98.0); Mean Platelet Volume 7.1 fL (7.4-10.4); Platelet Count 357 thou/uL (130-400); RBC Distribution Width 13.3 % (11.5-14.5); Red Blood Cell (RBC) Count 3.89 mill/uL (4.20-5.40)
[2021-10-22] MEDS: Enoxaparin Sodium 40 MG/0.4 ML SYRINGE SC SCH (08:51)
[2021-10-22] MEDS: Pantoprazole 40 MG VIAL IVP SCH (08:51)
[2021-10-22 09:04] LABS: Hemoglobin A1c 4.8 % (4.0-6.0)
[2021-10-22 09:06] LABS: Anion Gap 16 mmol/L (10-20); BUN (Urea Nitrogen) 7 mg/dL (9.8-20.1); Calc. Creatinine Clearance 82 mL/min (70-130); Calcium 8.7 mg/dL (7.8-10.44); Carbon Dioxide 21 mmol/L (23-31); Chloride 106 mmol/L (98-107); Glucose 74 mg/dL (83-110); Potassium 3.1 mmol/L (3.5-5.1); Sodium 140 mmol/L (136-145)
[2021-10-22] MEDS ORDERED: Potassium Chloride 20 MEQ in Premix Bag 1 BAG IVPB SCH (10:00)
[2021-10-22] MEDS: Aspirin 300 MG Suppository PR SCH (11:02)
[2021-10-22] MEDS: Aspirin 325 mg Enteric Coated Tablet PO SCH (11:02)
[2021-10-22] MEDS: Potassium Chloride 10 MEQ in Premix Bag 1 BAG IVPB SCH ×4 (11:40→16:04)
[2021-10-22] MEDS: Levothyroxine Sodium 100 MCG TAB PER TUBE SCH (18:36)
[2021-10-22] MEDS: Atorvastatin Calcium 40 MG TAB PO SCH (19:34)
[2021-10-23] MEDS: Sodium Chloride 0.9% 1,000 ML IV SCH ×2 (02:59→16:31)
[2021-10-23] MEDS: Levothyroxine Sodium 100 MCG TAB PER TUBE SCH (05:38)
[2021-10-23] MEDS: Aspirin 300 MG Suppository PR SCH (08:41)
[2021-10-23] MEDS: Enoxaparin Sodium 40 MG/0.4 ML SYRINGE SC SCH (08:44)
[2021-10-23] MEDS: Pantoprazole 40 MG VIAL IVP SCH (08:45)
[2021-10-23 18:50] LABS: Anion Gap 19 mmol/L (10-20); BUN (Urea Nitrogen) 7 mg/dL (9.8-20.1); Calc. Creatinine Clearance 81 mL/min (70-130); Calcium 8.8 mg/dL (7.8-10.44); Carbon Dioxide 15 mmol/L (23-31); Chloride 105 mmol/L (98-107); Glucose 56 mg/dL (83-110); Potassium 4.2 mmol/L (3.5-5.1); Sodium 135 mmol/L (136-145)
[2021-10-23] MEDS ORDERED: Dextrose 50% Abboject 50 ML SYRINGE IVP PRN (19:15)
[2021-10-23] MEDS ORDERED: Dextrose 50% Abboject 50 ML SYRINGE SLOW IVP SCH (19:15)
[2021-10-23] MEDS ORDERED: Dextrose 5% in Water 1,000 ML IV PRN (19:15)
[2021-10-23] MEDS: Dextrose 5 % And 0.9 % NaCl 1,000 ML IV SCH (19:41)
[2021-10-24] MEDS: Atorvastatin Calcium 40 MG TAB PO SCH ×2 (01:20→22:34)
[2021-10-24] MEDS: Levothyroxine Sodium 100 MCG TAB PER TUBE SCH (05:32)
[2021-10-24] MEDS ORDERED: ceFAZolin 2 GM/Dextrose 50 ML IVPB ONE (08:18)
[2021-10-24] MEDS ORDERED: Dextrose 50% Abboject 50 ML SYRINGE SLOW IVP PRN (08:25)
[2021-10-24] MEDS ORDERED: Dextrose 5% in Water 1,000 ML IV PRN (08:25)
[2021-10-24] MEDS ORDERED: PROPOFOL 200 MG/20 ML VIAL ONE (08:26)
[2021-10-24] MEDS: Enoxaparin Sodium 40 MG/0.4 ML SYRINGE SC SCH (09:58)
[2021-10-24] MEDS: Aspirin 300 MG Suppository PR SCH (09:58)
[2021-10-24] MEDS: Pantoprazole 40 MG GRANULES PACKET PER TUBE SCH (10:21)
[2021-10-24 11:38] LABS: Anion Gap 17 mmol/L (10-20); BUN (Urea Nitrogen) 7 mg/dL (9.8-20.1); Calc. Creatinine Clearance 83 mL/min (70-130); Calcium 8.8 mg/dL (7.8-10.44); Carbon Dioxide 20 mmol/L (23-31); Chloride 103 mmol/L (98-107); Glucose 97 mg/dL (83-110); Potassium 3.4 mmol/L (3.5-5.1); Sodium 137 mmol/L (136-145)
[2021-10-24] MEDS: Dextrose 5 % And 0.9 % NaCl 1,000 ML IV SCH (15:15)
[2021-10-24] MEDS: Sodium Chloride 0.9% 1,000 ML IV SCH ×2 (22:34→22:35)
[2021-10-25] MEDS: Levothyroxine Sodium 100 MCG TAB PER TUBE SCH (05:22)
[2021-10-25] MEDS: Enoxaparin Sodium 40 MG/0.4 ML SYRINGE SC SCH (09:12)
[2021-10-25] MEDS: Aspirin 300 MG Suppository PR SCH (09:12)
[2021-10-25] MEDS ORDERED: Aspirin 325 MG TAB PER TUBE SCH (09:30)
[2021-10-25] MEDS: Pantoprazole 40 MG GRANULES PACKET PER TUBE SCH (09:46)
[2021-10-25 10:59] LABS: SARS-CoV-2 PCR by NAA Not Detected (NotDetected)
[2021-10-25] MEDS: Dextrose 5 % And 0.9 % NaCl 1,000 ML IV SCH (11:13)
[2021-10-25 18:36] VITALS: BMI 30.5
[2021-10-25] MEDS: Sodium Chloride 0.9% 1,000 ML IV SCH (18:44)
[2021-10-25] MEDS ORDERED: Atorvastatin Calcium 40 MG TAB PER TUBE SCH (21:00)
[2021-10-26] MEDS: Levothyroxine Sodium 100 MCG TAB PER TUBE SCH (06:24)
[2021-10-26] MEDS: Dextrose 5 % And 0.9 % NaCl 1,000 ML IV SCH (06:24)
[2021-10-26] MEDS: Enoxaparin Sodium 40 MG/0.4 ML SYRINGE SC SCH (08:53)
[2021-10-26] MEDS: Pantoprazole 40 MG GRANULES PACKET PER TUBE SCH (08:54)
[2021-10-26] MEDS ORDERED: Aspirin 325 MG TAB PER TUBE SCH (09:00)
[2021-10-26 11:57] VITALS: BP 133/67; TEMP 97.4
== END 2021-10-26 14:33 | DRG 24 ==
LOC: ERS 12:52 → CCL 14:35 → CCU 14:36 → NEURO 10-19 20:33
PROVIDERS: ADMIT Neurological Surgery; ATTEND Internal Medicine
PROC: 03CG3ZZ Extirpation of Matter from Intracranial Artery, Percutaneous Approach (ICD-10-PCS; principal; 2021-10-18)
PROC: B314ZZZ Fluoroscopy of Left Common Carotid Artery (ICD-10-PCS; 2021-10-18)
PROC: 0DH63UZ Insertion of Feeding Device into Stomach, Percutaneous Approach (ICD-10-PCS; 2021-10-24)
DX: I63.512 Cerebral infarction due to unspecified occlusion or stenosis of left middle cerebral artery (principal); G81.91 Hemiplegia, unspecified affecting right dominant side; Z20.822 Contact with and (suspected) exposure to COVID-19; Z23 Encounter for immunization; R29.725 NIHSS score 25; R47.1 Dysarthria and anarthria; R13.12 Dysphagia, oropharyngeal phase; E03.9 Hypothyroidism, unspecified; E78.5 Hyperlipidemia, unspecified; R47.01 Aphasia; R29.810 Facial weakness; G93.89 Other specified disorders of brain; F32.A Depression, unspecified; K44.9 Diaphragmatic hernia without obstruction or gangrene; Z88.8 Allergy status to other drugs, medicaments and biological substances; Z79.82 Long term (current) use of aspirin; Z79.890 Hormone replacement therapy; Z79.899 Other long term (current) drug therapy; E87.6 Hypokalemia; E16.2 Hypoglycemia, unspecified
CPT/HCPCS: 36215; 36222; 36415; 36416; 37184; 61645; 70450; 70496; 70498; 70551; 71045; 74230; 80048; 80053; 80061; 82550; 83036; 83605; 83735; 84443; 84484; 85025; 85610; 85730; 93005; 93306; 95816; 95819; 95957; C1887; C9113; J0690; J1644; J1650; J2370; J2704; J3010; J3480; J7042; J7050; Q9967; U0002; U0003; U0005

== ENCOUNTER 2024-07-05 07:20 | Outpatient (CLI) | payer MEDICARE, BC ==
[2024-07-05] MEDS ORDERED: diphenhydrAMINE 50 MG/ML VIAL ONE (08:33)
[2024-07-05] MEDS ORDERED: Iopamidol 370 76% 100 ML VIAL ONE (12:27)
== END 2024-07-05 07:21 | disposition home or self-care (01) ==
LOC: CT 07:20
PROVIDERS: ATTEND Internal Medicine Hematology & Oncology
DX: C25.1 Malignant neoplasm of body of pancreas (principal); C83.31 Diffuse large B-cell lymphoma, lymph nodes of head, face, and neck; K76.89 Other specified diseases of liver; K44.9 Diaphragmatic hernia without obstruction or gangrene; K86.89 Other specified diseases of pancreas
CPT/HCPCS: 74177; J1200; Q9967

== ENCOUNTER 2025-07-22 11:26 | Inpatient (IN) | payer MEDICARE, BC ==
[2025-07-22] MEDS ORDERED: Cefepime 2 GM VIAL ONE (12:06)
[2025-07-22 12:14] LABS: CAUTI Indications for Culture Alt mental st,lethar; Glucose, Urine (Dipstick) Normal (Negative); Leukocyte 75 Leu/uL (Negative); Protein, Urine (Dipstick) 30 mg/dL (Neg-Trace); RBC/HPF 21-50 HPF (0-3); Specific Gravity, Urine 1.023 (1.002-1.036); Yeast-Budding Rare HPF (None Seen)
[2025-07-22 12:22] LABS: Bacteria/HPF 1+ HPF (None Seen)
[2025-07-22 12:24] LABS: Urine Culture Reflex Yes Yes
[2025-07-22] MEDS: Vancomycin 1.5 GM / NS 500ML VIAL-2-BAG IVPB SCH (14:20)
[2025-07-22 14:30] LABS: #Basophils 0.04 10x3/uL (0.0-0.2); #Eosinophils Less than 0.03 10x3/uL (0.0-0.7); #Monocytes 0.68 10x3/uL (0.11-0.59); #Neutrophils 14.70 10x3/uL (1.40-6.50); %Basophils 0.2 % (0.0-1.0); %Eosinophils 0.1 % (0.0-10.0); %Lymphocytes 3.1 % (21.0-51.0); %Monocytes 4.2 % (0.0-10.0); %Neutrophils 91.7 % (42.0-75.0); Hematocrit 48.9 % (36.0-47.0); Hemoglobin 15.5 g/dL (12.0-16.0); Mean Corpuscular Hemoglobin 28.6 pg (27.0-31.0); Mean Corpuscular Volume 90.2 fL (78.0-98.0); Platelet Count 201 10x3/uL (130-400); Red Blood Cell (RBC) Count 5.42 mill/uL (4.20-5.40); White Blood Cell (WBC) Count 16.06 10x3/uL (4.8-10.8)
[2025-07-22 14:41] LABS: INR-International Normal Ratio 1.0; PTT 29.6 sec (22.9-36.1); Prothrombin Time 13.7 sec (12.0-14.7)
[2025-07-22 15:12] LABS: ALT (SGPT) 56 U/L (Less than 34); AST (SGOT) 119 U/L (11-34); Albumin 2.7 g/dL (3.1-4.5); Alkaline Phosphatase 70 U/L (40-110); Anion Gap 21 mmol/L (10-20); BUN (Urea Nitrogen) 41 mg/dL (9.8-20.1); Bilirubin, Total 0.5 mg/dL (0.3-1.2); CK (CPK) 2768 U/L (29-168); Calc. Creatinine Clearance 0 mL/min (70-130); Calcium 9.5 mg/dL (7.8-10.44); Carbon Dioxide 19 mmol/L (23-31); Chloride 110 mmol/L (98-107); Globulin 4.0 g/dL (2.4-3.5); Glucose 92 mg/dL (83-110); Potassium 3.9 mmol/L (3.5-5.1); Sodium 146 mmol/L (136-145)
[2025-07-22] MEDS ORDERED: Ondansetron PF 4 MG/2 ML Vial IVP PRN (17:19)
[2025-07-22] MEDS ORDERED: Guaifenesin DM 100-10/5 ML UDCUP PO PRN (17:19)
[2025-07-22] MEDS ORDERED: Calcium Carbonate 500 MG ChewTAB PO PRN (17:19)
[2025-07-22] MEDS ORDERED: Diltiazem HCl/D5W 125 MG in Premix 1 BAG IVPB SCH ×2 (17:30→22:56)
[2025-07-22] MEDS ORDERED: FLU (Fluad Triv) 25-26 (65UP)PF 45 MCG/0.5 ML Syringe IM ONE (23:00)
[2025-07-22] MEDS ORDERED: PNEUMOC 20-VAL CONJ-DIP CRM/PF 0.5 ML SYRINGE IM ONE (23:00)
[2025-07-22] MEDS: Acetaminophen 325 MG TAB PO SCH (23:10)
[2025-07-23] MEDS: Vancomycin 1 GM in Premix 1 BAG IVPB SCH (00:44)
[2025-07-23 06:09] VITALS: BMI 21.9
[2025-07-23 06:11] LABS: %Basophils 0.3 % (0.0-1.0)
[2025-07-23 06:50] LABS: Anion Gap 15 mmol/L (10-20); BUN (Urea Nitrogen) 33 mg/dL (9.8-20.1); CK (CPK) 1179 U/L (29-168); Calc. Creatinine Clearance 59 mL/min (70-130); Calcium 8.9 mg/dL (7.8-10.44); Carbon Dioxide 22 mmol/L (23-31); Chloride 114 mmol/L (98-107); Glucose 100 mg/dL (83-110); Potassium 3.2 mmol/L (3.5-5.1); Sodium 148 mmol/L (136-145)
[2025-07-23 06:50] LABS: #Basophils 0.03 10x3/uL (0.0-0.2); #Eosinophils 0.05 10x3/uL (0.0-0.7); #Monocytes 0.58 10x3/uL (0.11-0.59); #Neutrophils 10.42 10x3/uL (1.40-6.50); %Eosinophils 0.4 % (0.0-10.0); %Lymphocytes 5.1 % (21.0-51.0); %Monocytes 4.9 % (0.0-10.0); %Neutrophils 88.6 % (42.0-75.0); Hematocrit 49.7 % (36.0-47.0); Hemoglobin 15.1 g/dL (12.0-16.0); Mean Corpuscular Hemoglobin 29.2 pg (27.0-31.0); Mean Corpuscular Volume 96.1 fL (78.0-98.0); Platelet Count 171 10x3/uL (130-400); Red Blood Cell (RBC) Count 5.17 mill/uL (4.20-5.40); White Blood Cell (WBC) Count 11.76 10x3/uL (4.8-10.8)
[2025-07-23] MEDS ORDERED: Electrolyte Replacement Protocol 1 EACH FS SCH (08:15)
[2025-07-23] MEDS: Enoxaparin 40 MG (0.4 mL) SYRINGE SC SCH (08:59)
[2025-07-23] MEDS: Aspirin 325 MG TAB PO SCH (08:59)
[2025-07-23] MEDS: Potassium Chloride 20 MEQ in Premix 1 BAG IVPB SCH (08:59)
[2025-07-23] MEDS: Sertraline 100 MG TAB PO SCH (09:00)
[2025-07-23] MEDS: Fluconazole 100 MG TAB PO SCH (09:00)
[2025-07-23] MEDS: Metoprolol Succinate XL 25 MG ER.TAB PO SCH (09:00)
[2025-07-23] MEDS: 1/2 NS w/Potassium 20 mEq 1,000 ML IV SCH (12:21)
[2025-07-23 13:28] LABS: Vancomycin, Random 39.4 ug/mL (See Comment)
[2025-07-23 14:23] VITALS: BMI 21.9
[2025-07-23] MEDS: Diltiazem HCl/D5W 125 MG in Premix 1 BAG IVPB SCH (21:09)
[2025-07-24] MEDS ORDERED: Gabapentin 100 MG CAP PO SCH (01:00)
[2025-07-24 05:16] LABS: #Basophils 0.05 10x3/uL (0.0-0.2); #Eosinophils 0.29 10x3/uL (0.0-0.7); #Monocytes 0.81 10x3/uL (0.11-0.59); #Neutrophils 7.89 10x3/uL (1.40-6.50); %Basophils 0.5 % (0.0-1.0); %Eosinophils 2.9 % (0.0-10.0); %Lymphocytes 9.2 % (21.0-51.0); %Monocytes 8.1 % (0.0-10.0); %Neutrophils 78.7 % (42.0-75.0); Hematocrit 41.8 % (36.0-47.0); Hemoglobin 12.7 g/dL (12.0-16.0); Mean Corpuscular Hemoglobin 28.3 pg (27.0-31.0); Mean Corpuscular Volume 93.3 fL (78.0-98.0); Platelet Count 175 10x3/uL (130-400); Red Blood Cell (RBC) Count 4.48 mill/uL (4.20-5.40); White Blood Cell (WBC) Count 10.02 10x3/uL (4.8-10.8)
[2025-07-24 05:28] LABS: Anion Gap 14 mmol/L (10-20); BUN (Urea Nitrogen) 29 mg/dL (9.8-20.1); CK (CPK) 609 U/L (29-168); Calc. Creatinine Clearance 56 mL/min (70-130); Calcium 8.4 mg/dL (7.8-10.44); Carbon Dioxide 24 mmol/L (23-31); Chloride 113 mmol/L (98-107); Glucose 87 mg/dL (83-110); Magnesium 1.9 mg/dL (1.6-2.6); Potassium 4.0 mmol/L (3.5-5.1); Sodium 147 mmol/L (136-145)
[2025-07-24] MEDS: Magnesium 2 GM/50 ML(in water) 2 GM in Premix 1 BAG IVPB SCH (08:56)
[2025-07-24] MEDS: Vancomycin 1 GM in Premix 1 BAG IVPB SCH (11:07)
[2025-07-24] MEDS: 1/2 NS w/Potassium 20 mEq 1,000 ML IV SCH (15:04)
[2025-07-25 05:07] LABS: #Basophils 0.03 10x3/uL (0.0-0.2); #Eosinophils 0.40 10x3/uL (0.0-0.7); #Monocytes 0.60 10x3/uL (0.11-0.59); #Neutrophils 6.35 10x3/uL (1.40-6.50); %Basophils 0.4 % (0.0-1.0); %Eosinophils 4.8 % (0.0-10.0); %Lymphocytes 10.7 % (21.0-51.0); %Monocytes 7.2 % (0.0-10.0); %Neutrophils 75.9 % (42.0-75.0); Hematocrit 39.3 % (36.0-47.0); Hemoglobin 12.2 g/dL (12.0-16.0); Mean Corpuscular Hemoglobin 28.5 pg (27.0-31.0); Mean Corpuscular Volume 91.8 fL (78.0-98.0); Platelet Count 199 10x3/uL (130-400); Red Blood Cell (RBC) Count 4.28 mill/uL (4.20-5.40); White Blood Cell (WBC) Count 8.35 10x3/uL (4.8-10.8)
[2025-07-25 05:29] LABS: Anion Gap 11 mmol/L (10-20); BUN (Urea Nitrogen) 21 mg/dL (9.8-20.1); Calc. Creatinine Clearance 77 mL/min (70-130); Calcium 8.2 mg/dL (7.8-10.44); Carbon Dioxide 21 mmol/L (23-31); Chloride 111 mmol/L (98-107); Glucose 85 mg/dL (83-110); Potassium 4.0 mmol/L (3.5-5.1); Sodium 139 mmol/L (136-145)
[2025-07-26 05:26] LABS: #Basophils 0.04 10x3/uL (0.0-0.2); #Eosinophils 0.46 10x3/uL (0.0-0.7); #Monocytes 0.59 10x3/uL (0.11-0.59); #Neutrophils 5.80 10x3/uL (1.40-6.50); %Basophils 0.5 % (0.0-1.0); %Eosinophils 5.6 % (0.0-10.0); %Lymphocytes 13.8 % (21.0-51.0); %Monocytes 7.2 % (0.0-10.0); %Neutrophils 71.1 % (42.0-75.0); Hematocrit 42.1 % (36.0-47.0); Hemoglobin 13.4 g/dL (12.0-16.0); Mean Corpuscular Hemoglobin 29.0 pg (27.0-31.0); Mean Corpuscular Volume 91.1 fL (78.0-98.0); Platelet Count 256 10x3/uL (130-400); Red Blood Cell (RBC) Count 4.62 mill/uL (4.20-5.40); White Blood Cell (WBC) Count 8.17 10x3/uL (4.8-10.8)
[2025-07-26 05:45] LABS: Anion Gap 10 mmol/L (10-20); BUN (Urea Nitrogen) 25 mg/dL (9.8-20.1); Calc. Creatinine Clearance 67 mL/min (70-130); Calcium 8.6 mg/dL (7.8-10.44); Carbon Dioxide 24 mmol/L (23-31); Chloride 106 mmol/L (98-107); Glucose 81 mg/dL (83-110); Potassium 4.3 mmol/L (3.5-5.1); Sodium 136 mmol/L (136-145)
[2025-07-27 05:09] LABS: Hematocrit 42.8 % (36.0-47.0); Hemoglobin 13.9 g/dL (12.0-16.0); Mean Corpuscular Hemoglobin 29.3 pg (27.0-31.0); Mean Corpuscular Volume 90.3 fL (78.0-98.0); Platelet Count 291 10x3/uL (130-400); Red Blood Cell (RBC) Count 4.74 mill/uL (4.20-5.40); White Blood Cell (WBC) Count 7.35 10x3/uL (4.8-10.8)
[2025-07-27 05:23] LABS: Anion Gap 11 mmol/L (10-20); BUN (Urea Nitrogen) 31 mg/dL (9.8-20.1); Calc. Creatinine Clearance 71 mL/min (70-130); Calcium 8.7 mg/dL (7.8-10.44); Carbon Dioxide 26 mmol/L (23-31); Chloride 104 mmol/L (98-107); Glucose 92 mg/dL (83-110); Potassium 4.4 mmol/L (3.5-5.1); Sodium 137 mmol/L (136-145)
[2025-07-27 05:35] LABS: Anisocytosis SLIGHT = 6-15 cells HPF (0-5); Platelet Adequacy Comment Platelets Normal; Polychromasia SLIGHT = 2-3 cells HPF (0-2)
[2025-07-27] MEDS: dilTIAZem 30 MG TAB PO SCH (13:36)
[2025-07-28 05:55] LABS: #Basophils 0.05 10x3/uL (0.0-0.2); #Eosinophils 0.48 10x3/uL (0.0-0.7); #Monocytes 0.70 10x3/uL (0.11-0.59); #Neutrophils 5.69 10x3/uL (1.40-6.50); %Basophils 0.6 % (0.0-1.0); %Eosinophils 5.8 % (0.0-10.0); %Lymphocytes 13.4 % (21.0-51.0); %Monocytes 8.4 % (0.0-10.0); %Neutrophils 68.2 % (42.0-75.0); Hematocrit 42.7 % (36.0-47.0); Hemoglobin 13.4 g/dL (12.0-16.0); Mean Corpuscular Hemoglobin 28.9 pg (27.0-31.0); Mean Corpuscular Volume 92.2 fL (78.0-98.0); Platelet Count 336 10x3/uL (130-400); Red Blood Cell (RBC) Count 4.63 mill/uL (4.20-5.40); White Blood Cell (WBC) Count 8.34 10x3/uL (4.8-10.8)
[2025-07-28 06:09] LABS: Anion Gap 13 mmol/L (10-20); BUN (Urea Nitrogen) 31 mg/dL (9.8-20.1); Calc. Creatinine Clearance 68 mL/min (70-130); Calcium 8.8 mg/dL (7.8-10.44); Carbon Dioxide 27 mmol/L (23-31); Chloride 104 mmol/L (98-107); Glucose 88 mg/dL (83-110); Potassium 4.4 mmol/L (3.5-5.1); Sodium 140 mmol/L (136-145)
[2025-07-28] MEDS ORDERED: Potassium Chloride 20 MEQ in Premix 1 BAG IVPB PRN (12:30)
[2025-07-28] MEDS ORDERED: Magnesium 2 GM/50 ML(in water) 2 GM in Premix 1 BAG IVPB PRN (12:30)
[2025-07-28] MEDS ORDERED: PHOS-NAK 1 PKT PACK PO PRN (12:30)
[2025-07-29 05:26] LABS: #Basophils 0.03 10x3/uL (0.0-0.2); #Eosinophils 0.37 10x3/uL (0.0-0.7); #Monocytes 0.72 10x3/uL (0.11-0.59); #Neutrophils 6.33 10x3/uL (1.40-6.50); %Basophils 0.4 % (0.0-1.0); %Eosinophils 4.3 % (0.0-10.0); %Lymphocytes 10.2 % (21.0-51.0); %Monocytes 8.4 % (0.0-10.0); %Neutrophils 74.2 % (42.0-75.0); Hematocrit 40.4 % (36.0-47.0); Hemoglobin 12.4 g/dL (12.0-16.0); Mean Corpuscular Hemoglobin 28.6 pg (27.0-31.0); Mean Corpuscular Volume 93.1 fL (78.0-98.0); Platelet Count 295 10x3/uL (130-400); Red Blood Cell (RBC) Count 4.34 mill/uL (4.20-5.40); White Blood Cell (WBC) Count 8.53 10x3/uL (4.8-10.8)
[2025-07-29 05:32] LABS: ALT (SGPT) 153 U/L (Less than 34); AST (SGOT) 129 U/L (11-34); Albumin 2.2 g/dL (3.1-4.5); Alkaline Phosphatase 256 U/L (40-110); Anion Gap 11 mmol/L (10-20); BUN (Urea Nitrogen) 26 mg/dL (9.8-20.1); Bilirubin, Total 0.3 mg/dL (0.3-1.2); Calc. Creatinine Clearance 74 mL/min (70-130); Calcium 8.4 mg/dL (7.8-10.44); Carbon Dioxide 26 mmol/L (23-31); Chloride 106 mmol/L (98-107); Globulin 3.2 g/dL (2.4-3.5); Glucose 94 mg/dL (83-110); Magnesium 1.8 mg/dL (1.6-2.6); Potassium 4.1 mmol/L (3.5-5.1); Sodium 139 mmol/L (136-145)
[2025-07-29] MEDS: Metoprolol Tartrate 5 MG (5 mL) VIAL IVP SCH ×2 (11:55→16:23)
[2025-07-29] MEDS: dilTIAZem 30 MG TAB PO SCH ×2 (11:55→16:23)
[2025-07-29] MEDS: Cephalexin 250 MG CAP PO SCH (13:28)
[2025-07-29] MEDS ORDERED: Metoprolol Tartrate 5 MG (5 mL) VIAL IVP SCH (15:15)
[2025-07-30 04:56] LABS: #Basophils 0.04 10x3/uL (0.0-0.2); #Eosinophils 0.24 10x3/uL (0.0-0.7); #Monocytes 0.87 10x3/uL (0.11-0.59); #Neutrophils 10.70 10x3/uL (1.40-6.50); %Basophils 0.3 % (0.0-1.0); %Eosinophils 1.9 % (0.0-10.0); %Lymphocytes 7.0 % (21.0-51.0); %Monocytes 6.7 % (0.0-10.0); %Neutrophils 82.6 % (42.0-75.0); Hematocrit 43.9 % (36.0-47.0); Hemoglobin 13.3 g/dL (12.0-16.0); Mean Corpuscular Hemoglobin 28.4 pg (27.0-31.0); Mean Corpuscular Volume 93.6 fL (78.0-98.0); Platelet Count 355 10x3/uL (130-400); Red Blood Cell (RBC) Count 4.69 mill/uL (4.20-5.40); White Blood Cell (WBC) Count 12.96 10x3/uL (4.8-10.8)
[2025-07-30] MEDS: Amiodarone 150 MG, Admixture Fee 1 EACH in Dextrose 5% in Water 100 ML IVPB SCH (18:30)
[2025-07-31 10:56] LABS: #Basophils 0.04 10x3/uL (0.0-0.2); #Eosinophils 0.37 10x3/uL (0.0-0.7); #Monocytes 0.48 10x3/uL (0.11-0.59); #Neutrophils 7.48 10x3/uL (1.40-6.50); %Basophils 0.4 % (0.0-1.0); %Eosinophils 3.9 % (0.0-10.0); %Lymphocytes 10.9 % (21.0-51.0); %Monocytes 5.0 % (0.0-10.0); %Neutrophils 78.5 % (42.0-75.0); Hematocrit 41.3 % (36.0-47.0); Hemoglobin 12.5 g/dL (12.0-16.0); Mean Corpuscular Hemoglobin 28.7 pg (27.0-31.0); Mean Corpuscular Volume 94.9 fL (78.0-98.0); Platelet Count 293 10x3/uL (130-400); Red Blood Cell (RBC) Count 4.35 mill/uL (4.20-5.40); White Blood Cell (WBC) Count 9.53 10x3/uL (4.8-10.8)
[2025-07-31 11:17] LABS: ALT (SGPT) 148 U/L (Less than 34); AST (SGOT) 84 U/L (11-34); Albumin 2.5 g/dL (3.1-4.5); Alkaline Phosphatase 324 U/L (40-110); Anion Gap 11 mmol/L (10-20); BUN (Urea Nitrogen) 23 mg/dL (9.8-20.1); Bilirubin, Total 0.4 mg/dL (0.3-1.2); Calc. Creatinine Clearance 73 mL/min (70-130); Calcium 8.9 mg/dL (7.8-10.44); Carbon Dioxide 28 mmol/L (23-31); Chloride 104 mmol/L (98-107); Globulin 4.0 g/dL (2.4-3.5); Glucose 104 mg/dL (83-110); Potassium 3.9 mmol/L (3.5-5.1); Sodium 139 mmol/L (136-145)
[2025-08-01 04:24] LABS: #Basophils 0.07 10x3/uL (0.0-0.2); #Eosinophils 0.37 10x3/uL (0.0-0.7); #Monocytes 0.84 10x3/uL (0.11-0.59); #Neutrophils 9.06 10x3/uL (1.40-6.50); %Basophils 0.6 % (0.0-1.0); %Eosinophils 3.2 % (0.0-10.0); %Lymphocytes 9.5 % (21.0-51.0); %Monocytes 7.3 % (0.0-10.0); %Neutrophils 78.4 % (42.0-75.0); Hematocrit 39.0 % (36.0-47.0); Hemoglobin 11.8 g/dL (12.0-16.0); Mean Corpuscular Hemoglobin 29.0 pg (27.0-31.0); Mean Corpuscular Volume 95.8 fL (78.0-98.0); Platelet Count 318 10x3/uL (130-400); Red Blood Cell (RBC) Count 4.07 mill/uL (4.20-5.40); White Blood Cell (WBC) Count 11.55 10x3/uL (4.8-10.8)
[2025-08-01 05:16] LABS: ALT (SGPT) 164 U/L (Less than 34); AST (SGOT) 129 U/L (11-34); Albumin 2.4 g/dL (3.1-4.5); Alkaline Phosphatase 327 U/L (40-110); Anion Gap 13 mmol/L (10-20); BUN (Urea Nitrogen) 31 mg/dL (9.8-20.1); Bilirubin, Total 0.3 mg/dL (0.3-1.2); Calc. Creatinine Clearance 69 mL/min (70-130); Calcium 8.8 mg/dL (7.8-10.44); Carbon Dioxide 24 mmol/L (23-31); Chloride 104 mmol/L (98-107); Globulin 4.0 g/dL (2.4-3.5); Glucose 88 mg/dL (83-110); Potassium 4.6 mmol/L (3.5-5.1); Sodium 136 mmol/L (136-145)
[2025-08-01] MEDS: Digoxin 0.5 MG/2 ML AMP SLOW IVP SCH (10:01)
[2025-08-02] MEDS: Metoprolol Tartrate 5 MG (5 mL) VIAL IVP SCH (00:07)
[2025-08-02] MEDS: Metoprolol Tartrate 5 MG (5 mL) VIAL ONE (00:08)
[2025-08-02 04:41] LABS: #Basophils 0.04 10x3/uL (0.0-0.2); #Eosinophils 0.30 10x3/uL (0.0-0.7); #Monocytes 0.84 10x3/uL (0.11-0.59); #Neutrophils 7.71 10x3/uL (1.40-6.50); %Basophils 0.4 % (0.0-1.0); %Eosinophils 3.0 % (0.0-10.0); %Lymphocytes 10.9 % (21.0-51.0); %Monocytes 8.4 % (0.0-10.0); %Neutrophils 76.7 % (42.0-75.0); Hematocrit 36.6 % (36.0-47.0); Hemoglobin 11.5 g/dL (12.0-16.0); Mean Corpuscular Hemoglobin 28.7 pg (27.0-31.0); Mean Corpuscular Volume 91.3 fL (78.0-98.0); Platelet Count 330 10x3/uL (130-400); Red Blood Cell (RBC) Count 4.01 mill/uL (4.20-5.40); White Blood Cell (WBC) Count 10.05 10x3/uL (4.8-10.8)
[2025-08-02 05:04] LABS: ALT (SGPT) 165 U/L (Less than 34); AST (SGOT) 121 U/L (11-34); Albumin 2.4 g/dL (3.1-4.5); Alkaline Phosphatase 338 U/L (40-110); Anion Gap 12 mmol/L (10-20); BUN (Urea Nitrogen) 26 mg/dL (9.8-20.1); Bilirubin, Total 0.5 mg/dL (0.3-1.2); Calc. Creatinine Clearance 74 mL/min (70-130); Calcium 8.9 mg/dL (7.8-10.44); Carbon Dioxide 27 mmol/L (23-31); Chloride 102 mmol/L (98-107); Globulin 3.7 g/dL (2.4-3.5); Glucose 91 mg/dL (83-110); Potassium 4.0 mmol/L (3.5-5.1); Sodium 137 mmol/L (136-145)
[2025-08-02] MEDS: Digoxin 0.125 MG TAB PO SCH (09:09)
[2025-08-02] MEDS: Metoprolol Succinate XL 25 MG ER.TAB PO SCH (21:16)
[2025-08-03 04:46] LABS: #Basophils 0.07 10x3/uL (0.0-0.2); #Eosinophils 0.39 10x3/uL (0.0-0.7); #Monocytes 0.87 10x3/uL (0.11-0.59); #Neutrophils 6.05 10x3/uL (1.40-6.50); %Basophils 0.8 % (0.0-1.0); %Eosinophils 4.6 % (0.0-10.0); %Lymphocytes 13.1 % (21.0-51.0); %Monocytes 10.2 % (0.0-10.0); %Neutrophils 70.9 % (42.0-75.0); Hematocrit 37.4 % (36.0-47.0); Hemoglobin 11.9 g/dL (12.0-16.0); Mean Corpuscular Hemoglobin 29.1 pg (27.0-31.0); Mean Corpuscular Volume 91.4 fL (78.0-98.0); Platelet Count 328 10x3/uL (130-400); Red Blood Cell (RBC) Count 4.09 mill/uL (4.20-5.40); White Blood Cell (WBC) Count 8.53 10x3/uL (4.8-10.8)
[2025-08-03 05:05] LABS: ALT (SGPT) 154 U/L (Less than 34); AST (SGOT) 101 U/L (11-34); Albumin 2.5 g/dL (3.1-4.5); Alkaline Phosphatase 346 U/L (40-110); Anion Gap 15 mmol/L (10-20); BUN (Urea Nitrogen) 26 mg/dL (9.8-20.1); Bilirubin, Total 0.4 mg/dL (0.3-1.2); Calc. Creatinine Clearance 80 mL/min (70-130); Calcium 9.1 mg/dL (7.8-10.44); Carbon Dioxide 25 mmol/L (23-31); Chloride 103 mmol/L (98-107); Globulin 4.1 g/dL (2.4-3.5); Glucose 84 mg/dL (83-110); Potassium 3.9 mmol/L (3.5-5.1); Sodium 139 mmol/L (136-145)
[2025-08-03] MEDS: Metoprolol Succinate XL 50 MG ER.TAB PO SCH ×2 (10:03→20:13)
[2025-08-04] MEDS: Metoprolol Succinate XL 50 MG ER.TAB PO SCH (08:09)
[2025-08-04] MEDS: Melatonin 3 MG TAB PO PRN (21:03)
[2025-08-04] MEDS: Senokot S 8.6-50 MG TAB PO SCH (21:05)
[2025-08-04] MEDS: Melatonin 3 MG TAB PO SCH (22:26)
[2025-08-07] MEDS: dilTIAZem 30 MG TAB PO SCH (15:22)
[2025-08-08 14:21] VITALS: BP 117/63; TEMP 98.2
== END 2025-08-08 14:45 | DRG 871 ==
LOC: ERS 11:26 → ERHOLD 16:59 → 2NO 22:06
PROVIDERS: ADMIT Internal Medicine; ATTEND Student in an Organized Health Care Education/Training Program
PROC: 3E03329 Introduction of Other Anti-infective into Peripheral Vein, Percutaneous Approach (ICD-10-PCS; principal; 2025-07-22)
PROC: 3E0234Z Introduction of Serum, Toxoid and Vaccine into Muscle, Percutaneous Approach (ICD-10-PCS; 2025-07-22)
DX: A41.9 Sepsis, unspecified organism (principal); G93.41 Metabolic encephalopathy; J69.0 Pneumonitis due to inhalation of food and vomit; J96.01 Acute respiratory failure with hypoxia; F33.9 Major depressive disorder, recurrent, unspecified; L03.115 Cellulitis of right lower limb; N30.00 Acute cystitis without hematuria; E87.0 Hyperosmolality and hypernatremia; I50.32 Chronic diastolic (congestive) heart failure; I48.19 Other persistent atrial fibrillation; E03.9 Hypothyroidism, unspecified; R65.20 Severe sepsis without septic shock; E78.5 Hyperlipidemia, unspecified; T79.6XXA Traumatic ischemia of muscle, initial encounter; E86.1 Hypovolemia; K59.00 Constipation, unspecified; I11.0 Hypertensive heart disease with heart failure; F03.90 Unspecified dementia, unspecified severity, without behavioral disturbance, psychotic disturbance, mood disturbance, and anxiety; E87.6 Hypokalemia; R79.89 Other specified abnormal findings of blood chemistry; Z96.643 Presence of artificial hip joint, bilateral; Z88.8 Allergy status to other drugs, medicaments and biological substances; Z79.82 Long term (current) use of aspirin; Z23 Encounter for immunization; Z79.01 Long term (current) use of anticoagulants; Z79.899 Other long term (current) drug therapy; Z98.890 Other specified postprocedural states; Z79.890 Hormone replacement therapy; Z98.41 Cataract extraction status, right eye; Z90.710 Acquired absence of both cervix and uterus
CPT/HCPCS: 36415; 36416; 51701; 70450; 71045; 72125; 72170; 74018; 74176; 74230; 80048; 80053; 80202; 81001; 82550; 83605; 83735; 83880; 84443; 84481; 84484; 85025; 85610; 85730; 87040; 87081; 87086; 93005; 93306; 94760; 96361; 96365; 96366; 96367; 96376; 97139; J0282; J0692; J1160; J1650; J2270; J3373; J3475; J3480; J7030; J7050; J7070